=== PATIENT | female | born 1950 | race African-American/Black ===

== ENCOUNTER 2017-04-27 02:05 | Inpatient (IN) ==
[2017-04-27] MEDS ORDERED: ONDANSETRON 4 MG/2 ML VIAL IV STA (04:56)
[2017-04-27] MEDS ORDERED: NITROGLYCERIN 2% OINT 1 INCH/GM PACK TOP STA (04:56)
[2017-04-27] MEDS ORDERED: MORPHINE 2 MG/1 ML SYRINGE IV STA (04:56)
[2017-04-27] MEDS ORDERED: FUROSEMIDE 40 MG/4 ML VIAL IV STA (04:56)
[2017-04-27] MEDS ORDERED: ALUM/MAG/SIMETH/LIDO VISC 1:1 30 ML BOTTLE PO STA (04:56)
[2017-04-27] MEDS ORDERED: ASPIRIN 325 MG TABLET PO STA (04:56)
[2017-04-27] MEDS ORDERED: methylPREDNISolone SOD SUC 125 MG/2 ML VIAL IV STA (04:57)
[2017-04-27] MEDS ORDERED: ALBUTEROL/IPRATROPIUM 3 ML NEB RESP TX STA (04:57)
[2017-04-27 05:04] LABS: Basophils % 0.2 % (0.0-0.8); Eosinophils # 0.2 10*3/uL (0.0-0.87); Eosinophils % 3.5 % (0.00-10.9); Hematocrit 24.2 VOL% (35.7-47.0); Hemoglobin 6.9 GM/DL (12.0-16.0); Immature Granulocytes % 0.4 %; Immature Granulocytes Absolute 0.02 #; Lymphocytes # 0.9 10*3/uL (1.4-4.0); Lymphocytes % 20.5 % (21.3-54.2); Mean Corpuscular HGB Conc 28.5 GM/DL (32-36); Mean Corpuscular Hemoglobin 24 PG (27-34); Mean Corpuscular Volume 84.6 FL (87-102); Mean Platelet Volume 12.3 FL (9.6-12.0); Monocytes # 0.6 10*3/uL (0.11-0.8); Monocytes % 12.4 % (1.7-12.7); Neutrophils # 2.9 10*3/uL (1.4-7.4); Platelet Count 190 T/CUMM (130-400); Red Blood Count 2.86 MC/CUMM (3.8-5.5); Red Cell Distribution Width 17.5 % (9.3-17.3); White Blood Count 4.5 T/CUMM (4-12)
[2017-04-27] MEDS ORDERED: MORPHINE 2 MG/1 ML SYRINGE ONE (05:04)
[2017-04-27] MEDS ORDERED: NITROGLYCERIN 2% OINT 1 INCH/GM PACK TOP ONE (05:04)
[2017-04-27] MEDS ORDERED: FUROSEMIDE 40 MG/4 ML VIAL ONE (05:04)
[2017-04-27] MEDS ORDERED: ONDANSETRON 4 MG/2 ML VIAL ONE (05:04)
[2017-04-27] MEDS ORDERED: ALUM/MAG/SIMETH/LIDO VISC 1:1 30 ML BOTTLE PO ONE (05:05)
[2017-04-27] MEDS ORDERED: ASPIRIN 325 MG TABLET ONE (05:05)
[2017-04-27] MEDS ORDERED: methylPREDNISolone SOD SUC 125 MG/2 ML VIAL ONE (05:05)
[2017-04-27] MEDS ORDERED: FUROSEMIDE 20 MG/2 ML VIAL ONE (05:05)
[2017-04-27 05:10] LABS: PT Patient Result 10.9 SECS
[2017-04-27 05:14] LABS: Apearance,Urine Slightly Hazy (Clear); Bacteria,Urine Occasional /HPF (Few); Bilirubin,Urine Negative (Negative); Blood, Urine Moderate mg/dL (Negative); Glucose,Urine (UA) Negative (Negative); Hyaline Casts,Urine 1 /LPF (0-3); Ketones,Urine Negative (Negative); Mucus,Urine Occasional /LPF (Occasional); Nitrite,Urine Positive (Negative); Protein,Urine Negative; RBC,Urine 4 /HPF (0-4); Squamous Epithelial Cell,Urine Occasional /HPF (0-10); Urine Color Amber (Yellow); Urine Specific Gravity 1.004 (1.001-1.035); WBC,Urine 15 /HPF (0-6)
[2017-04-27 05:18] LABS: Albumin 2.6 G/DL (3.4-5.0); Bilirubin,Total 0.4 MG/DL (0.2-1.0); Calcium 8.4 MG/DL (8.5-10.1); Magnesium 2.2 MG/DL (1.8-2.4); Osmolality,Calculated 276.5 MOS/KG (273-304); Potassium 3.8 MMOL/L (3.5-5.1); Total Protein 6.8 G/DL (6.4-8.3)
--- NOTE | 2017-04-27 05:21 | Emergency Department Note ---
Marcin Rivera Brittany, am scribing for, and in the presence of, Nicholas Medrano MD 05:15. Mitchell Rivera Charles R, MD, personally performed the services described in this documentation, ascribed by Sailaja Burch in my presence, and it is both accurate and complete 521 . Arrival - Arrival Chief Complaint: Chest Pain ED Nursing Triage Note: pt brought in via ems with c/o "tightness to chest/ upper abd" pt states that she "feels full when she tries to eat" pt also reports a loss of appetite and having shortness of breath since. o2 sat 92% on RA Mode of Arrival: Stretcher Limitations: No Limitations Source: Patient, RN Notes Reviewed Time Seen by Provider: 04/27/17 02:22 - History of Present Illness HPI Narrative: Patient is a 66 y/o black female presenting to the ED via EMS with c/o chest and epigastric tightness that began tonight. Patient reports having some feeling of fullness when trying to eat. She has since had a loss of appetite and shortness of breath. Patient notably has an oxygen saturation of 92% on RA. Reports history of Cholecystectomy and Diabetes Mellitus. Patient states that she has had some knee pain as well. Patient does not ambulate secondary to being bedridden. She has not had any N/V with this. Patient is routinely followed at [facility]. Patient has no further complaints. Allergies/Adverse Reactions: Allergies Allergy/AdvReac Type Severity Reaction Status Date / Time Penicillins Allergy RASH Verified 04/27/17 04:38 Review of System - Review of System 12 point system: reviewed and no additional remarkable complaints except as stated - Review of System Respiratory: Present: respiratory distress Cardiovascular: Present: chest pain Gastrointestinal: Present: abdominal pain, other (loss of appetite). Absent: nausea, vomiting Musculoskeletal: Present: leg pain (bilateral knee) Medical,Surgical,& Family Hx - Medical History Cardio: History of: CHF, Hypertension Endocrine: History of: Diabetes Mellitus (NIDDM) Respiratory: History of: COPD - Social History Smoking Status: Never smoker Frequency of Alcohol Use: None Type of Drug Use: None Exam Vital Signs: Vital Signs Temperature 97.1 F L 04/27/17 02:05 Pulse Rate 67 04/27/17 02:05 Respiratory Rate 14 04/27/17 02:05 Blood Pressure 144/78 04/27/17 02:05 O2 Sat by Pulse Oximetry 92 L 04/27/17 02:05 - General General appearance: alert, in no apparent distress, obese (morbidly) - Head Head exam: Present: atraumatic, normocephalic - Eye Eye exam: Present: PERRL, EOMI - ENT ENT exam: Present: normal exam, normal oropharynx - Neck Neck exam: Present: normal inspection, full ROM, trachea midline - Chest Chest inspection: Present: normal inspection, symmetric chest wall rise - Respiratory Respiratory exam: Present: rales, respiratory distress (mild), wheezes. Absent : normal lung sounds bilaterally - Cardiovascular Cardiovascular exam: Present: regular rate, normal rhythm, normal heart sounds - Abdominal Exam Abdominal exam: Present: soft, distention, tenderness (epigastric), normal bowel sounds - Rectal Exam Rectal exam: Present: heme (-) stool - Extremities Exam Extremities exam: Present: pedal edema (+3 edema to BLE) - Back Exam Back exam: Present: normal inspection - Neurological Exam Neurological exam: Present: alert, oriented X3, CN II-XII intact. Absent: motor sensory deficit - Psychiatric Psychiatric exam: Present: normal affect, normal mood - Skin Skin exam: Present: warm, dry, intact, normal color Course - Consultations Consultation #1: Hospitalist will admit patient Time: 05:34 Results - Labs CBC & BMP: 04/27/17 02:41 04/27/17 02:41 Lab Results: I have reviewed the patients labs Labs: Laboratory Tests 04/27/17 04/27/17 04/27/17 02:41 02:41 02:41 WBC 4.5 RBC 2.86 L Hgb 6.9 L Hct 24.2 L MCV 84.6 L MCH 24 L MCHC 28.5 L RDW 17.5 H Plt Count 190 MPV 12.3 H Lymph % (Auto) 20.5 L Lymph # (Auto) 0.9 L INR 1.0 PT Patient/Control Mix 10.9 Sodium 132 L Potassium 3.8 Chloride 93 L Carbon Dioxide 34 H BUN 42 H Creatinine 3.70 H Glucose 127 H Calcium 8.4 L Troponin I Albumin 2.6 L Globulin 4.2 H Albumin/Globulin Ratio 0.6 L 04/27/17 02:41 WBC RBC Hgb Hct MCV MCH MCHC RDW Plt Count MPV Lymph % (Auto) Lymph # (Auto) INR PT Patient/Control Mix Sodium Potassium Chloride Carbon Dioxide BUN Creatinine Glucose Calcium Troponin I 0.049 H Albumin Globulin Albumin/Globulin Ratio Critical Care Time Critical Care Time: Yes Total Critical Care Time: 60 Disposition Clinical Impression: Chest pain, Morbid obesity, Congestive heart failure, Anemia, Bedridden, Debility, unspecified, Lower extremity edema, Renal failure, UTI (urinary tract infection), COPD (chronic obstructive pulmonary disease) Case discussed with: patient Disposition: Still a Patient Condition: Guarded Time of Disposition: 05:41
[2017-04-27] MEDS ORDERED: LEVOFLOXACIN INJ 250 MG in PREMIX 1 EACH IV STA (05:25)
[2017-04-27] MEDS ORDERED: ACETAMINOPHEN 325 MG TABLET PO PRN (05:40)
[2017-04-27] MEDS ORDERED: ONDANSETRON 4 MG/2 ML VIAL IV PRN (05:40)
[2017-04-27] MEDS ORDERED: LEVOFLOXACIN INJ 150 ML IV ONE (06:09)
[2017-04-27 06:16] LABS: Magnesium 2.3 MG/DL (1.8-2.4); Risk Ratio 4.03; Thyroid Stimulating Hormone 3.01 uIU/ml (0.358-3.74); VLDL CHOLESTEROL 24.8 MG/DL
[2017-04-27] MEDS ORDERED: GLUCAGON 1 MG VIAL IM PRN (06:18)
[2017-04-27] MEDS ORDERED: DEXTROSE 50% 25 GM/50 ML SYRINGE IV PRN (06:18)
--- NOTE | 2017-04-27 06:33 | Hospitalist History & Physical ---
Assessment and Plan - Time spent with patient Time spent with patient: Greater than 30 minutes (1) Chest pain Status: Acute Assessment and plan: Admit to hospitalist services. Monitored bed. Cardiology consult. Manage BP and fluid overload. Serial troponins. Current Visit: Yes (2) Congestive heart failure Status: Acute Assessment and plan: BNP 314. Cardiology consult. Obtain Echo. Lasix 80 mg IV TID. Manage BP. Strict I/Os Daily weight. Current Visit: Yes (3) UTI (urinary tract infection) Status: Acute Assessment and plan: Urine culture performed in ED, follow. Levaquin started in ED. Continue with 250 mg IV Q24. Current Visit: Yes (4) Hypertension Status: Acute Assessment and plan: Continue home medications. Lasix 80 mg IV TID. Monitor. Current Visit: Yes (5) Diabetes Status: Acute Assessment and plan: Continue home medications. Diabetic diet. Accuchecks and SSI ACHS. Current Visit: Yes (6) Anemia Status: Acute Assessment and plan: Hemeoccult stool negative. Repeat CBC in am. Current Visit: Yes (7) Renal failure Status: Acute Assessment and plan: Nephrology consult. Renally dosed antibiotic for UTI. Recheck CMP in am. Current Visit: Yes (8) DVT prophylaxis Status: Acute Assessment and plan: Lovenox 30 mg SQ daily. Current Visit: Yes History of Present Illness Chief complaint: Chest pain; SOB History of present illness: Ms. Miranda is a 66 year old female with a past medical history significant for HTN, IDDM, CHF, and morbid obesity who presents to the ED today with complaints of chest pain and shortness of breath x 4-5 days. Chest pain is located on the left side and is described as intermittent and a feeling of heaviness. She has associated epigastric discomfort with nausea and early satiety. She further complains of bilateral leg edema and pain. ED work up was significant for hemoglobin 2.86, hematocrit 24.2, Na 132, Creatinine 3.7, Troponin 0.049 and BNP 314. Her UA showed a nitrite positive UTI. Currently, she reports that her breathing is better and she does not have chest pain at pain. Her only discomfort at this time is her legs. Hospitalist services were consulted, and the patient will be admitted to a monitored bed for further evaluation and treatment. Her medications were reviewed and reconciled. This patient is a full code. Allergies Allergy/AdvReac Type Severity Reaction Status Date / Time Penicillins Allergy RASH Verified 04/27/17 04:38 Medical,Surgical,& Family Hx - Medical History Cardio: History of: CHF, Hypertension Endocrine: History of: Diabetes Mellitus (IDDM) Respiratory: History of: COPD Other: History of: Miscellaneous Medical Problems (Morbid obesity) - Surgical History Abdominal Surgeries: Surgical HX of: Cholecystectomy Reproductive Surgeries: Surgical HX of;: Tubal Ligation - Family History Family History: Reports;: Family Diabetes, Family Heart Disease - Social History Smoking Status: Former smoker Have you smoked in the last 12 months: No Frequency of Alcohol Use: None Type of Drug Use: None Marital Status: Lives With:: Children (Daughther and grandchildren) Functional capacity: bed bound 12 point system: reviewed and no additional remarkable complaints except as stated - Constitutional Constitutional: Present: weakness. Absent: fever(s), malaise - EENT Eyes: Absent: blurry vision, diplopia, loss of vision Ears: Absent: decreased hearing, ear discharge, ear pain Nose, mouth and throat: Absent: headache(s), nasal congestion, sore throat - Cardiovascular Cardiovascular: Present: chest pain at rest, dyspnea, edema, orthopnea. Absent : palpitations - Respiratory Respiratory: Present: dyspnea. Absent: cough, wheezing - Gastrointestinal Gastrointestinal: Present: early satiety, nausea. Absent: diarrhea, vomiting - Genitourinary Genitourinary: Absent: dysuria, flank pain - Musculoskeletal Musculoskeletal: Absent: arthralgias, joint swelling, muscle weakness, myalgias - Neurological Neurological: Absent: dizziness, numbness, paresthesias, syncope - Psychiatric Psychiatric: Absent: anxiety, depression - Endocrine Endocrine: Absent: cold intolerance, polydipsia, polyphagia, polyuria - Hematologic/Lymphatic Hematologic/Lymphatic: Absent: easy bleeding, easy bruising Exam - Constitutional Vitals: Period Temp Pulse Resp BP Sys/Elkins Pulse Ox Last 24 Hr 97.1 F-97.1 F 62-67 14-20 144-144/78-78 92-100 Exam: Constitutional System: Afebrile. Awake, alert and oriented x 3. No distress. No tremulousness. Head: Normocephalic, atraumatic. Ears, Nose and Throat System: No pain or tenderness. No epistaxis or discharge Eyes System: Pupils equal, round, and reactive. Extraocular muscles intact. Neck: Supple, without adenopathy, No jugular venous distention. No thyromegaly, neck mass, or prior surgery apparent. Respiratory System: Chest clear to auscultation. Cardiovascular System: Heart with regular rate and rhythm. No murmur. GI System: Abdomen soft, nontender. Normo active bowel sounds present. System: Hematuria noted in catheter bag. Musculoskeletal System: limbs with 4+ pedal edema. Full distal pulses. Normal capillary refill. Neurological System: No discernable sensory deficit. No aphasia Psychiatric System: Conversation is rational Results - Labs CBC & BMP: 04/27/17 02:41 04/27/17 02:41 Lab Results: I have reviewed the past 24 hour labs - Diagnostic Findings Procedure: Chest x-ray: pending (Report pending. )
[2017-04-27 06:47] LABS: Anisocytosis 1+; Hypochromasia 1+; Ovalocytes Few; Platelet Estimate Normal
--- NOTE | 2017-04-27 07:10 | EKG Report ---
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
--- NOTE | 2017-04-27 08:28 | EKG Report ---
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
[2017-04-27] MEDS ORDERED: DIGOXIN 0.125 MG TABLET PO SCH (09:00)
--- NOTE | 2017-04-27 09:20 | XRay Report ---
Single view the chest. Indication: Chest pain. No previous. The heart is enlarged. There is calcific plaque present within the aortic knob. The lung xiong are free of infiltrate. No pneumothorax or pleural effusion. The pulmonary vasculature is prominent. Impression: Cardiomegaly and venous congestion. PROCEDURE INTERPRETED AT [facility] DEPARTMENT OF RADIOLOGY Final Report Signed by: Dr. Joanne Isaacs
[2017-04-27] MEDS: LEVOFLOXACIN INJ 250 MG in PREMIX 1 EACH IV SCH (09:26)
[2017-04-27] MEDS: POTASSIUM CHLORIDE 10 MEQ TABLET PO SCH ×2 (09:26→20:39)
[2017-04-27] MEDS: CARVEDILOL 12.5 MG TABLET PO SCH ×2 (09:26→20:39)
[2017-04-27] MEDS: PIOGLITAZONE 45 MG TABLET PO SCH (09:27)
[2017-04-27] MEDS: ENOXAPARIN 30 MG/0.3 ML SYRINGE SUBCUT SCH (09:27)
[2017-04-27] MEDS: FUROSEMIDE 40 MG/4 ML VIAL IV SCH ×3 (09:28→20:40)
[2017-04-27] MEDS: INSULIN ASPART PROTAMINE/ASPART 70/30 100 UNIT/ML SUBCUT SCH ×2 (09:30→18:18)
[2017-04-27] MEDS: INSULIN LISPRO 100 UNIT/ML SUBCUT SCH ×4 (09:31→20:57)
--- NOTE | 2017-04-27 10:58 | EKG Report ---
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
--- NOTE | 2017-04-27 11:08 | Hospitalist Progress Note ---
Assessment and Plan (1) Chest pain Status: Acute Assessment and plan: Her chest pain has resolved. Her troponins have been elevated to 0.049 and 0.052. This may well be due to her congestive heart failure and renal failure. Cardiology has been consulted Current Visit: Yes (2) Morbid obesity Status: Acute Current Visit: Yes (3) Congestive heart failure Status: Acute Assessment and plan: She experiencing acute on chronic congestive heart failure, type unknown. An echocardiogram has been ordered. Cardiology has been consulted. She is presently being treated with intravenous furosemide. Current Visit: Yes (4) Debility, unspecified Status: Acute Current Visit: Yes (5) Renal failure Status: Acute Assessment and plan: Her BUN and creatinine are 42 and 3.7 respectively with a calculated GFR of 21. It is unclear if this is chronic renal failure, acute renal failure, or acute on chronic renal failure. Nephrology has been consulted. Current Visit: Yes Qualifiers: Renal failure chronicity: unspecified chronicity Qualified Code(s): N19 - Unspecified kidney failure (6) UTI (urinary tract infection) Status: Acute Assessment and plan: She is being treated with intravenous levofloxacin 250 mg daily. Cultures are pending. Current Visit: Yes Qualifiers: Urinary tract infection type: site unspecified Hematuria presence: without hematuria Qualified Code(s): N39.0 - Urinary tract infection, site not specified (7) Hypertension Status: Acute Assessment and plan: Her blood pressure today is 145/83. She is presently being treated with carvedilol. Current Visit: Yes (8) Diabetes Status: Acute Assessment and plan: She has a previous history of insulin-dependent diabetes mellitus. Her blood glucose this morning is 127. She is being treated with continuation of her previous medications and sliding scale insulin coverage. Current Visit: Yes Qualifiers: Diabetes mellitus type: type 1 Diabetes mellitus complication detail: with chronic kidney disease Hospitalist: Subjective Interval history: Ms. Miranda is a morbidly obese female admitted to the hospital yesterday with a urinary tract infection, chest pain, and acute on chronic congestive heart failure and renal failure. She has been treated since admission with intravenous levofloxacin and furosemide. Cardiology has been consulted. Exam - Constitutional Vitals: Period Temp Pulse Resp BP Sys/Elkins Pulse Ox Last 24 Hr 97.1 F-98.1 F 62-72 14-20 131-145/63-83 92-100 General appearance: no acute distress, morbidly obese - Head Head exam: Present: normal inspection - Neck Neck exam: Present: normal inspection - Respiratory Respiratory exam: Present: clear to auscultation bilaterally - Cardiovascular Cardiovascular exam: Present: regular rate and rhythm - GI/Abdominal GI/Abdominal exam: Present: normal bowel sounds, soft, other (Nontender with no palpable masses or hepatosplenomegaly.) - Extremities Exam Extremities exam: Present: edema - Back Exam Back exam: Present: other (Small stage I sacral decubitus.) - Neurological Exam Neurological exam: Present: alert, oriented X3 - Skin Skin exam: Present: normal color, warm, intact Results - Labs CBC & BMP: 04/27/17 02:41 04/27/17 02:41
--- NOTE | 2017-04-27 11:51 | Nephrology Consult Note ---
History of Present Illness Chief complaint: ckd History of present illness: Ms. Miranda is a 66 year old female whom we are asked to see with a creatinine of 3-1/2. She presented to the emergency room with swelling and her doctor is Dr. Ana Lilia Hull in [place]. She is a long-standing diabetic who takes insulin. She complains of a full feeling in her abdomen that is bothersome to her along with the edema. Para urinalysis demonstrated no proteinuria. She is anemic with a hematocrit of approximately 25.. On exam she is [place] obese and her neck without jugular venous distention heart without rub or gallop lungs are clear the abdomen obese and nontender extremities with 3-4+ peripheral edema Chest x-ray demonstrates no gross volume overload Impression chronic renal failure and anemia likely secondary to that, grand obesity Suggestion I agree with the diuresis. Will check iron iron-binding capacity and a digoxin level will need to rule out renal obstruction and will try to do that with an ultrasound but her size may prohibit it Home Medications Medication Instructions Recorded Confirmed Type Amitriptyline HCl 100 mg PO BEDTIME 04/27/17 04/27/17 History Carvedilol 12.5 mg PO BID W/MEALS 04/27/17 04/27/17 History Digoxin 125 mcg PO DAILY 04/27/17 04/27/17 History Furosemide 80 mg PO TID 04/27/17 04/27/17 History Hydrocodone/Acetaminophen [[place] 1 each PO Q4H PRN 04/27/17 04/27/17 History 10-325 Tablet] Insulin Aspart Prot/Asp 70/30 30 unit SUBCUT QPM 04/27/17 04/27/17 History [NovoLOG Mix 70/30] Insulin Aspart Prot/Asp 70/30 40 unit SUBCUT QAM 04/27/17 04/27/17 History [NovoLOG Mix 70/30] Loratadine Tab [Claritin Tab] 10 mg PO DAILY 04/27/17 04/27/17 History Lubiprostone [Amitiza] 24 - 48 mcg PO DAILY 04/27/17 04/27/17 History Pioglitazone HCl 45 mg PO DAILY 04/27/17 04/27/17 History Potassium Chloride 10 meq PO BID 04/27/17 04/27/17 History Saccharomyces Boulardii [Probiotic] 250 mg PO BID 04/27/17 04/27/17 History acetaZOLAMIDE [Acetazolamide] 250 mg PO BID 04/27/17 04/27/17 History Allergies Allergy/AdvReac Type Severity Reaction Status Date / Time Penicillins Allergy RASH Verified 04/27/17 04:38 Medical,Surgical,& Family Hx - Medical History Cardio: History of: CHF, Hypertension Endocrine: History of: Diabetes Mellitus (IDDM), Diabetes Mellitus (NIDDM) Respiratory: History of: COPD Other: History of: Miscellaneous Medical Problems (Morbid obesity) - Surgical History Abdominal Surgeries: Surgical HX of: Cholecystectomy Reproductive Surgeries: Surgical HX of;: Gynecologic Surgery, Tubal Ligation - Family History Family History: Reports;: Family Diabetes, Family Heart Disease - Social History Smoking Status: Former smoker Frequency of Alcohol Use: None Type of Drug Use: None Review of Systems 12 point system: reviewed and no additional remarkable complaints except as stated Exam - Vital Signs Vital signs: Period Temp Pulse Resp BP Sys/Elkins Pulse Ox Last 24 Hr 97.1 F-98.1 F 62-72 14-20 131-145/63-83 92-100 - General Appearance General appearance: obese EENT: ATNC Neck: no JVD, no thyromegaly, no carotid bruit, supple Respiratory: no kyphosis, no scoliosis Cardiology: no murmurs, no rub, no gallops, no edema, regular rate, regular rhythm, normal S1, normal S2 Gastrointestinal: normoactive bowel sounds Integumentary: no rash, warm and dry Neurologic: no focal deficit, no asterixis, alert and oriented x3, reflexes 2+ and symmetric, gait normal, strength 5/5 Musculoskeletal: no deformities, no erythema, no cyanosis, no clubbing Psychiatric: mood/affect appropriate, cooperative Results - Labs CBC & BMP: 04/27/17 02:41 04/27/17 02:41 Specialty Discharge - Follow Up or Referrals - Speciality Discharge Instructions Nephrology Instructions: Renal ultrasound. Diuresis.
--- NOTE | 2017-04-27 13:28 | ECHO Report ---
Kavitha Miranda Exam Date: 04/27/2017 10:23 Referring Physician: Technologist: cee Jose ARDMS, RVT Age: 66 Ht (in): 65 Wt (lb): 400 Gender: F Exam Location: [facility] Echo Indications: Chest pain, unspecified, Essential (primary) hypertension, CHF, Renal failure, UTI, DM, Anemia BP: 145 / 83 HR: 70 Rhythm: Sinus Technical Quality: IMPRESSIONS Mildly dilated left ventricle, with mild concentric hypertrophy. The inferior wall is hypokinetic, and the remaining segments have normal systolic thickening. Estimated left ventricular ejection fraction 50%. Grade 3 diastolic dysfunction. Mildly dilated right ventricle, with normal systolic function. Mild biatrial enlargement. Mild mitral annular calcification, with mild mitral regurgitation. Severe pulmonary hypertension, with moderate tricuspid regurgitation. MEASUREMENTS (Male / Female) Normal Values 2D ECHO LV Diastolic Diameter PLAX 6.5 cm 4.2 - 5.9 / 3.9 - 5.3 cm LV Systolic Diameter PLAX 4.2 cm LV Fractional Shortening PLAX 35.9 % IVS Diastolic Thickness 1.1 cm 0.6 - 1.0 / 0.6 - 0.9 cm LVPW Diastolic Thickness 1.3 cm 0.6 - 1.0 / 0.6 - 0.9 cm RV Internal Dim ED PLAX 3.3 cm Aortic Root Diameter 2.9 cm LA Systolic Diameter LX 4.3 cm 3.0 - 4.0 / 2.7 - 3.8 cm DOPPLER TR Peak Velocity 426.0 cm/s TR Peak Gradient 72.6 mmHg FINDINGS Left Ventricle Mildly dilated left ventricle, with mild concentric hypertrophy. The inferior wall is hypokinetic, and the remaining segments have normal systolic thickening. Estimated left ventricular ejection fraction 50%. Grade 3 diastolic dysfunction. Right Ventricle Mildly dilated right ventricle, with normal systolic function. Right Atrium The right atrium is mildly enlarged. Left Atrium The left atrium is mildly enlarged. Mitral Valve Morphologically normal mitral valve. Mild mitral annular calcification. Mild mitral valve regurgitation. Aortic Valve Morphologically normal aortic valve without significant sclerosis or stenosis. There is no aortic regurgitation. Tricuspid Valve Tricuspid valve not well visualized. Moderate tricuspid valve regurgitation. Tricuspid regurgitation velocities suggest a PAP of 73 mmHg plus RA pressure. Pulmonic Valve Morphologically normal pulmonic valve without significant stenosis. There is no pulmonic regurgitation. Pericardium Normal pericardium without effusion. Aorta Normal ascending aorta dimension. Shaka Howell (Electronically Signed) Final Date: 27 April 2017 13:27
--- NOTE | 2017-04-27 13:42 | Cardiology Consult Note ---
Assessment and Plan (1) Congestive heart failure Status: Acute Assessment and plan: 66-year-old black female, morbid obesity, bedridden, IVAN on CPAP, type 2 diabetes mellitus hypertension. Admitted with anasarca, volume overload, shortness of breath, chest pain. IVCD/ LBBB, with unknown chronicity, preserved ejection fraction, with a WMA suspicious for ICM, severe pulmonary hypertension, a LAURA vs. CKD. Doubt ACS. -She will need workup for cardiomyopathy and severe pulmonary hypertension. Once volume overload improves, suggest pharmacologic stress test and RHC. If renal function improves, we may do LHC instead of stress test -Continue IV diuresis, per renal recommendation -Check d-dimer. If elevated, DVT study and VQ scan -Indication for digoxin unclear. She is in sinus and ejection fraction is preserved. Severe renal dywsfunction. Discontinue. If he does have cor pulmonale, sometimes, this may be indicated -Resume CPAP for IVAN. She had no details on this, I suggest sleep/pulmonary consult, she may have OHS on top. Check ABG -Start aspirin, continue beta-cody. -Lipids normal. Multiple CV risk factors, I suggest to start Crestor 10 mg nightly Current Visit: Yes History of Present Illness - Data of Consult Patient: new to practice Consult date: 04/27/17 - Consult Narrative Reason for consult: edema, cp History of present illness: Ms. Miranda is a 66 year old black female, who was not previously seen by cardiology. She was admitted with gradually worsening edema, recent onset rest chest pain. She is a bit lethargic and is a very poor historian, most of the history was obtained from the chart. History of morbid obesity, bedridden, IVAN, for which she admits she uses CPAP, type 2 diabetes mellitus, htn. She came on digoxin, for which to indication is unclear. On admission, she was found to be in volume overload, anasarca, severe LAURA versus CKD, anemia of unknown chronicity, mild hyponatremia. TFTs normal. Troponin was borderline elevated, flat EKG sinus rhythm, IVCD/atypical left bundle branch block. Echo showed ejection fraction 50%, with inferior wall motion abnormality, severe pulmonary hypertension. Mild MR, mildly dilated RV. She is still quite somnolent and is unable to provide more details. Appears to be comfortable. CC: Rubén Mims - Home Medications and Allergies Home Medications: Home Medications Medication Instructions Recorded Confirmed Type Amitriptyline HCl 100 mg PO BEDTIME 04/27/17 04/27/17 History Carvedilol 12.5 mg PO BID W/MEALS 04/27/17 04/27/17 History Digoxin 125 mcg PO DAILY 04/27/17 04/27/17 History Furosemide 80 mg PO TID 04/27/17 04/27/17 History Hydrocodone/Acetaminophen [[place] 1 each PO Q4H PRN 04/27/17 04/27/17 History 10-325 Tablet] Insulin Aspart Prot/Asp 70/30 30 unit SUBCUT QPM 04/27/17 04/27/17 History [NovoLOG Mix 70/30] Insulin Aspart Prot/Asp 70/30 40 unit SUBCUT QAM 04/27/17 04/27/17 History [NovoLOG Mix 70/30] Loratadine Tab [Claritin Tab] 10 mg PO DAILY 04/27/17 04/27/17 History Lubiprostone [Amitiza] 24 - 48 mcg PO DAILY 04/27/17 04/27/17 History Pioglitazone HCl 45 mg PO DAILY 04/27/17 04/27/17 History Potassium Chloride 10 meq PO BID 04/27/17 04/27/17 History Saccharomyces Boulardii [Probiotic] 250 mg PO BID 04/27/17 04/27/17 History acetaZOLAMIDE [Acetazolamide] 250 mg PO BID 04/27/17 04/27/17 History Allergies/Adverse Reactions: Allergies Allergy/AdvReac Type Severity Reaction Status Date / Time Penicillins Allergy RASH Verified 04/27/17 04:38 12 point system: reviewed and no additional remarkable complaints except as stated Medical,Surgical,& Family Hx - Medical History Cardio: History of: CHF, Hypertension Endocrine: History of: Diabetes Mellitus (IDDM), Diabetes Mellitus (NIDDM) Respiratory: History of: COPD Other: History of: Miscellaneous Medical Problems (Morbid obesity) - Surgical History Abdominal Surgeries: Surgical HX of: Cholecystectomy Reproductive Surgeries: Surgical HX of;: Gynecologic Surgery, Tubal Ligation - Family History Family History: Reports;: Family Diabetes, Family Heart Disease - Social History Smoking Status: Former smoker Frequency of Alcohol Use: None Type of Drug Use: None Physical Examination Vital Signs Temp Pulse Resp BP Pulse Ox 97.1 F L 67 14 144/78 92 L 04/27/17 02:05 04/27/17 02:05 04/27/17 02:05 04/27/17 02:05 04/27/17 02:05 General: Present: Appears Well, No Apparent Distress, Other (Somnolent) HEENT: Present: Normocephaly, Mucus Membranes Moist Neck: Present: No Bruit, No Thyromegaly, Other (Thick neck, unable to assess JVD ) Cardiac: Present: Regular Rate, Regular Rhythm, Systolic Murmur. Absent: Laterally Displaced Lungs: Present: Decreased Breath Sounds, No Wheezes, No Rhonchi Neuro: Present: Grossly Intact Abdomen: Present: Soft, Active Bowel Sounds Skin: Present: Clear Musculoskeletal: Present: No Pain Gait: Present: Other (Bedridden) Extremities: Present: No Clubbing, No Cyanosis, +3 Edema Result/EKG - Labs CBC & BMP: 04/27/17 02:41 04/27/17 02:41 Lab Results: I have reviewed the past 24 hour labs Labs: Laboratory Results - last 24 hr 04/27/17 04/27/17 04/27/17 02:41 02:41 02:41 WBC RBC Hgb Hct MCV MCH MCHC RDW Plt Count MPV Neut % (Auto) Lymph % (Auto) [place] % (Auto) Eos % (Auto) Baso % (Auto) Neut # (Auto) Lymph # (Auto) [place] # (Auto) Eos # (Auto) Baso # (Auto) Immature Gran % Nucleated RBC % Immature Gran # Nucleated RBCs # Platelet Estimate Immature Plt Fraction Hypochromasia Anisocytosis Ovalocytes INR 1.0 PT Patient/Control Mix 10.9 Sodium 132 L Potassium 3.8 Chloride 93 L Carbon Dioxide 34 H Anion Gap 8.8 BUN 42 H Creatinine 3.70 H GFR Calculation 21 BUN/Creatinine Ratio 11.00 Glucose 127 H POC Glucose Hemoglobin A1c Calculated Osmolality 276.5 Calcium 8.4 L Magnesium 2.2 Total Bilirubin 0.40 AST 14 ALT 17 Alkaline Phosphatase 51 Troponin I B-Natriuretic Peptide Total Protein 6.8 Albumin 2.6 L Globulin 4.2 H Albumin/Globulin Ratio 0.6 L Triglycerides Cholesterol LDL Cholesterol VLDL Cholesterol HDL Cholesterol Heart Disease Risk Ratio Lipase 146.0 Free T4 TSH 3rd Generation Urine Color Radha Urine Appearance Slightly hazy Urine pH 5.0 Ur Specific [place] 1.004 Urine Protein Negative Urine Glucose (UA) Negative Urine Ketones Negative Urine Blood Moderate Urine Nitrate Positive H Urine Bilirubin Negative Urine Urobilinogen 2.0 H Urine Leukocytes Moderate H Urine RBC 4 Urine WBC 15 Urine WBC Clumps Few Ur Squamous Epith Cells Occasional Urine Bacteria Occasional Hyaline Casts 1 Urine Mucus Occasional Urine Yeast (Budding) Occasional Ur Culture Indicated? Results to follow 04/27/17 04/27/17 04/27/17 02:41 02:41 02:41 WBC 4.5 RBC 2.86 L Hgb 6.9 L Hct 24.2 L MCV 84.6 L MCH 24 L MCHC 28.5 L RDW 17.5 H Plt Count 190 MPV 12.3 H Neut % (Auto) 63.0 Lymph % (Auto) 20.5 L [place] % (Auto) 12.4 Eos % (Auto) 3.5 Baso % (Auto) 0.2 Neut # (Auto) 2.9 Lymph # (Auto) 0.9 L [place] # (Auto) 0.6 Eos # (Auto) 0.2 Baso # (Auto) 0.0 Immature Gran % 0.4 Nucleated RBC % 0.0 Immature Gran # 0.02 Nucleated RBCs # 0.00 Platelet Estimate Normal Immature Plt Fraction 0.0 Hypochromasia 1+ Anisocytosis 1+ Ovalocytes Few INR PT Patient/Control Mix Sodium Potassium Chloride Carbon Dioxide Anion Gap BUN Creatinine GFR Calculation BUN/Creatinine Ratio Glucose POC Glucose Hemoglobin A1c Calculated Osmolality Calcium Magnesium Total Bilirubin AST ALT Alkaline Phosphatase Troponin I 0.049 H B-Natriuretic Peptide 314 H Total Protein Albumin Globulin Albumin/Globulin Ratio Triglycerides Cholesterol LDL Cholesterol VLDL Cholesterol HDL Cholesterol Heart Disease Risk Ratio Lipase Free T4 TSH 3rd Generation Urine Color Urine Appearance Urine pH Ur Specific [place] Urine Protein Urine Glucose (UA) Urine Ketones Urine Blood Urine Nitrate Urine Bilirubin Urine Urobilinogen Urine Leukocytes Urine RBC Urine WBC Urine WBC Clumps Ur Squamous Epith Cells Urine Bacteria Hyaline Casts Urine Mucus Urine Yeast (Budding) Ur Culture Indicated? 04/27/17 04/27/17 04/27/17 02:41 02:41 07:53 WBC RBC Hgb Hct MCV MCH MCHC RDW Plt Count MPV Neut % (Auto) Lymph % (Auto) [place] % (Auto) Eos % (Auto) Baso % (Auto) Neut # (Auto) Lymph # (Auto) [place] # (Auto) Eos # (Auto) Baso # (Auto) Immature Gran % Nucleated RBC % Immature Gran # Nucleated RBCs # Platelet Estimate Immature Plt Fraction Hypochromasia Anisocytosis Ovalocytes INR PT Patient/Control Mix Sodium Potassium Chloride Carbon Dioxide Anion Gap BUN Creatinine GFR Calculation BUN/Creatinine Ratio Glucose POC Glucose 180 H Hemoglobin A1c Calculated Osmolality Calcium Magnesium 2.3 Total Bilirubin AST ALT Alkaline Phosphatase Troponin I B-Natriuretic Peptide Total Protein Albumin Globulin Albumin/Globulin Ratio Triglycerides 124 Cholesterol 161 LDL Cholesterol 98.0 VLDL Cholesterol 24.8 HDL Cholesterol 40 Heart Disease Risk Ratio 4.03 Lipase Free T4 1.28 TSH 3rd Generation 3.010 Urine Color Urine Appearance Urine pH Ur Specific [place] Urine Protein Urine Glucose (UA) Urine Ketones Urine Blood Urine Nitrate Urine Bilirubin Urine Urobilinogen Urine Leukocytes Urine RBC Urine WBC Urine WBC Clumps Ur Squamous Epith Cells Urine Bacteria Hyaline Casts Urine Mucus Urine Yeast (Budding) Ur Culture Indicated? 04/27/17 04/27/17 04/27/17 08:17 08:17 11:08 WBC RBC Hgb Hct MCV MCH MCHC RDW Plt Count MPV Neut % (Auto) Lymph % (Auto) [place] % (Auto) Eos % (Auto) Baso % (Auto) Neut # (Auto) Lymph # (Auto) [place] # (Auto) Eos # (Auto) Baso # (Auto) Immature Gran % Nucleated RBC % Immature Gran # Nucleated RBCs # Platelet Estimate Immature Plt Fraction Hypochromasia Anisocytosis Ovalocytes INR PT Patient/Control Mix Sodium Potassium Chloride Carbon Dioxide Anion Gap BUN Creatinine GFR Calculation BUN/Creatinine Ratio Glucose POC Glucose Hemoglobin A1c 8.2 H Calculated Osmolality Calcium Magnesium Total Bilirubin AST ALT Alkaline Phosphatase Troponin I 0.052 H 0.046 H B-Natriuretic Peptide Total Protein Albumin Globulin Albumin/Globulin Ratio Triglycerides Cholesterol LDL Cholesterol VLDL Cholesterol HDL Cholesterol Heart Disease Risk Ratio Lipase Free T4 TSH 3rd Generation Urine Color Urine Appearance Urine pH Ur Specific [place] Urine Protein Urine Glucose (UA) Urine Ketones Urine Blood Urine Nitrate Urine Bilirubin Urine Urobilinogen Urine Leukocytes Urine RBC Urine WBC Urine WBC Clumps Ur Squamous Epith Cells Urine Bacteria Hyaline Casts Urine Mucus Urine Yeast (Budding) Ur Culture Indicated? 04/27/17 12:42 WBC RBC Hgb Hct MCV MCH MCHC RDW Plt Count MPV Neut % (Auto) Lymph % (Auto) [place] % (Auto) Eos % (Auto) Baso % (Auto) Neut # (Auto) Lymph # (Auto) [place] # (Auto) Eos # (Auto) Baso # (Auto) Immature Gran % Nucleated RBC % Immature Gran # Nucleated RBCs # Platelet Estimate Immature Plt Fraction Hypochromasia Anisocytosis Ovalocytes INR PT Patient/Control Mix Sodium Potassium Chloride Carbon Dioxide Anion Gap BUN Creatinine GFR Calculation BUN/Creatinine Ratio Glucose POC Glucose 191 H Hemoglobin A1c Calculated Osmolality Calcium Magnesium Total Bilirubin AST ALT Alkaline Phosphatase Troponin I B-Natriuretic Peptide Total Protein Albumin Globulin Albumin/Globulin Ratio Triglycerides Cholesterol LDL Cholesterol VLDL Cholesterol HDL Cholesterol Heart Disease Risk Ratio Lipase Free T4 TSH 3rd Generation Urine Color Urine Appearance Urine pH Ur Specific [place] Urine Protein Urine Glucose (UA) Urine Ketones Urine Blood Urine Nitrate Urine Bilirubin Urine Urobilinogen Urine Leukocytes Urine RBC Urine WBC Urine WBC Clumps Ur Squamous Epith Cells Urine Bacteria Hyaline Casts Urine Mucus Urine Yeast (Budding) Ur Culture Indicated? - EKG EKG results: interpreted by me
[2017-04-27 13:43] LABS: % Iron Saturation 13.9 % (18-50)
[2017-04-27 14:14] LABS: ABG Base Excess 5.5 MMOL/L (-2.5-2.5); ABG HCO3 32.7 MMOL/L (20-26); ABG Oxygen Saturation 99.6 % (95-100); ABG PCO2 67.1 MM HG (35-48); ABG PH 7.306 (7.35-7.45); ABG PO2 118.2 MM HG (80-95); ABG TCO2 34.8 MMOL/L (23-27)
[2017-04-27] MEDS: ASPIRIN EC 81 MG TABLET PO SCH (16:23)
[2017-04-27] MEDS: AMITRIPTYLINE 100 MG TABLET PO SCH (20:38)
[2017-04-27] MEDS: LACTOBACILLUS ACIDOPHILUS/BULGARICUS CAPLET PO SCH (20:39)
[2017-04-27] MEDS: ROSUVASTATIN 10 MG TABLET PO SCH (20:39)
[2017-04-28 06:18] LABS: Hematocrit 23.8 VOL% (35.7-47.0); Hemoglobin 6.9 GM/DL (12.0-16.0); Immature Granulocytes % 0.7 %; Immature Granulocytes Absolute 0.02 #; Lymphocytes # 0.5 10*3/uL (1.4-4.0); Lymphocytes % 16.8 % (21.3-54.2); Mean Corpuscular Hemoglobin 24 PG (27-34); Mean Corpuscular Volume 82.4 FL (87-102); Monocytes # 0.1 10*3/uL (0.11-0.8); Monocytes % 3.6 % (1.7-12.7); Neutrophils # 2.2 10*3/uL (1.4-7.4); Neutrophils % 78.9 % (38.7-73.9); Platelet Count 178 T/CUMM (130-400); Red Blood Count 2.89 MC/CUMM (3.8-5.5); Red Cell Distribution Width 17.6 % (9.3-17.3); White Blood Count 2.8 T/CUMM (4-12)
[2017-04-28 06:39] LABS: Albumin 2.4 G/DL (3.4-5.0); Bilirubin,Total 0.6 MG/DL (0.2-1.0); Calcium 8.3 MG/DL (8.5-10.1); Osmolality,Calculated 281.2 MOS/KG (273-304); Potassium 4.3 MMOL/L (3.5-5.1); Total Protein 6.5 G/DL (6.4-8.3)
--- NOTE | 2017-04-28 08:04 | Ultrasound Report ---
US renal Bilateral Indication: Ckd. Comparison: None. Technique: Multiple longitudinal and transverse real-time sonographic images of the kidneys are obtained. Findings: The right kidney measures 11.9 cm, and the left kidney measures 11.0 cm. There is no evidence of hydronephrosis. Exam limited secondary to patient body habitus. IMPRESSION: Limited exam without evidence of hydronephrosis. PROCEDURE INTERPRETED AT [facility] DEPARTMENT OF RADIOLOGY Final Report Signed by: Dr Clark Mayo
[2017-04-28] MEDS: LEVOFLOXACIN INJ 250 MG in PREMIX 1 EACH IV SCH (08:25)
[2017-04-28] MEDS: POTASSIUM CHLORIDE 10 MEQ TABLET PO SCH ×2 (09:40→21:45)
[2017-04-28] MEDS: PIOGLITAZONE 45 MG TABLET PO SCH (09:40)
[2017-04-28] MEDS: LACTOBACILLUS ACIDOPHILUS/BULGARICUS CAPLET PO SCH ×2 (09:41→21:44)
[2017-04-28] MEDS: ASPIRIN EC 81 MG TABLET PO SCH (09:41)
[2017-04-28] MEDS: CARVEDILOL 12.5 MG TABLET PO SCH ×2 (09:42→21:46)
[2017-04-28] MEDS: LORATADINE 10 MG TABLET PO SCH (09:43)
[2017-04-28] MEDS: INSULIN LISPRO 100 UNIT/ML SUBCUT SCH ×4 (09:48→21:45)
[2017-04-28] MEDS: ENOXAPARIN 30 MG/0.3 ML SYRINGE SUBCUT SCH (09:48)
[2017-04-28] MEDS: INSULIN ASPART PROTAMINE/ASPART 70/30 100 UNIT/ML SUBCUT SCH ×2 (09:49→21:44)
[2017-04-28] MEDS: FUROSEMIDE 40 MG/4 ML VIAL IV SCH ×3 (09:57→21:53)
[2017-04-28] MEDS ORDERED: ZINC OXIDE PASTE 113 GM TUBE TOP PRN (11:10)
--- NOTE | 2017-04-28 14:04 | Nephrology Progress Note ---
Nephrology - PN: Subj Interval history: Ms. Miranda is seen in follow-up of her azotemia. Her creatinine is improved today now down to 3.2. She is diuresing fairly well and will continue with the diuretics for now. She is essentially without complaints. We will continue to follow her renal function as we diurese her. Exam (PN)-Nephrology - Vital Signs Vital signs: Period Temp Pulse Resp BP Sys/Elkins Pulse Ox Last 24 Hr 97.5 F-98.4 F 56-63 16-20 100-140/56-89 94-98 - Lab 04/28/17 04:19 04/28/17 04:19 Most recent lab results ABG pH 7.306 (7.35-7.45) L 04/27/17 14:08 ABG pCO2 67.1 MM HG (35-48) H 04/27/17 14:08 ABG pO2 118.2 MM HG (80-95) H 04/27/17 14:08 ABG HCO3 32.7 MMOL/L (20-26) H 04/27/17 14:08 ABG O2 Saturation 99.6 % (95-100) 04/27/17 14:08 Calcium 8.3 MG/DL (8.5-10.1) L 04/28/17 04:19 Magnesium 2.3 MG/DL (1.8-2.4) 04/27/17 02:41
--- NOTE | 2017-04-28 16:13 | Hospitalist Progress Note ---
Assessment and Plan (1) Morbid obesity Status: Acute Current Visit: Yes (2) Congestive heart failure Status: Acute Assessment and plan: The patient is admitted hospital with cor pulmonale. She appears to have pulmonary hypertension due to obesity hypoventilation syndrome causing her to have anasarca. The patient is responding to supportive care including CPAP, IV diuresis, and control blood pressure. We will continue present care and recheck renal function in the morning. Current Visit: Yes Qualifiers: Congestive heart failure type: combined Congestive heart failure chronicity : acute on chronic Qualified Code(s): I50.43 - Acute on chronic combined systolic (congestive) and diastolic (congestive) heart failure (3) Debility, unspecified Status: Acute Current Visit: Yes (4) Lower extremity edema Status: Acute Current Visit: Yes (5) Renal failure Status: Acute Current Visit: Yes Qualifiers: Renal failure chronicity: unspecified chronicity Qualified Code(s): N19 - Unspecified kidney failure Hospitalist: Subjective Interval history: Mrs. Miranda is mostly somnolent. She arouses to verbal command and follows commands. The patient is cooperative with therapy. The patient has CPAP at the bedside. She appears to be pickwickian. Exam - Constitutional Vitals: Period Temp Pulse Resp BP Sys/[place] Pulse Ox Last 24 Hr 97.5 F-98.4 F 56-66 16-20 100-134/47-89 94-100 Exam: Constitutional System: Mild distress. No tremulousness. The patient falls to sleep easily. The patient is morbidly obese. Head: Normocephalic, atraumatic. Ears, Nose and Throat System: No evidence of Otitis or Mastoiditis. No epistaxis or discharge Eyes System: Pupils equal, round, and reactive. Extraocular muscles intact. Neck: Supple, without adenopathy, No jugular venous distention. No thyromegaly , neck mass, or prior surgery apparent. Respiratory System: Chest clear to auscultation. The patient has small lung volumes Cardiovascular System: Heart with regular rate and rhythm. No murmur. GI System: Abdomen soft, nontender. Normo active bowel sounds present. Musculoskeletal System: limbs with no pedal edema. Full distal pulses. Results - Labs CBC & BMP: 04/28/17 04:19 04/28/17 04:19 Lab Results: I have reviewed the past 24 hour labs
--- NOTE | 2017-04-28 17:11 | Cardiology Progress Note ---
<Sneha Flores E - Last Filed: 04/28/17 17:50> Assessment and Plan - Time spent with patient Time spent with patient: Less than 30 minutes (1) Congestive heart failure Status: Acute Assessment and plan: See plan of care listed below. Current Visit: Yes Qualifiers: Congestive heart failure type: combined Congestive heart failure chronicity : acute on chronic Qualified Code(s): I50.43 - Acute on chronic combined systolic (congestive) and diastolic (congestive) heart failure (2) Hypertension Status: Chronic Assessment and plan: See plan of care listed below. Current Visit: Yes (3) Type 2 diabetes mellitus Status: Chronic Assessment and plan: See plan of care listed below. Current Visit: Yes (4) Obstructive sleep apnea Status: Chronic Assessment and plan: See plan of care listed below. Current Visit: Yes (5) Morbid obesity Status: Chronic Assessment and plan: See plan of care listed below. Current Visit: Yes (6) Bedridden Status: Acute Assessment and plan: See plan of care listed below. Current Visit: Yes (7) Renal failure Status: Acute Assessment and plan: See plan of care listed below. Current Visit: Yes Qualifiers: Renal failure chronicity: unspecified chronicity Qualified Code(s): N19 - Unspecified kidney failure (8) Anemia Status: Acute Assessment and plan: See plan of care listed below. 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 Miranda is a 66 y/o BF who was admitted with anasarca, volume overload, shortness of breath, and chest pain at rest. She and her family are very poor historians. She does have a history of hypertension, diabetes, IVAN, morbid obesity, and bedridden. She is noted to have an IVCD/LBBB with unknown chronicity, preserved EF, with WMA suspicious for ICM. Chest x-ray on admission shows cardiomegaly and venous congestion. 2016: Ms. Miranda is negative 1.4L in her I&O's.She reports she feels as if her edema has improved. We will need to obtain an accurate weight on Ms. Miranda. Weight yesterday states 336# and weight today states 193#. Her echocardiogram revealed mild LVH, EF 50%, grade 3 diastolic dysfunction, mild biatrial enlargement, mild MR, severe pulmonary hypertension with moderate TR. D -Dimer 2.0 yesterday. She will likely need further evaluation to rule out PE/ DVT. We'll obtain venous dopplers. Due to her habitus, it is likely VQ lung scan will be inconclusive. Will further discuss with Dr. Heaton and await additional recommendations. IMPRESSION/PLAN: 1. CONGESTIVE HEART FAILURE: Acute, diastolic, with grade 3 diastolic dysfunction and left ventricular ejection fraction 50%. She needs further cardiac evaluation. Once her volume overload improves, she may be a candidate for pharmacologic stress test and RHC. If her renal function improves, she may be able to undergo LHC instead of stress testing. We will need to obtain an accurate weight on her. Continue aspirin, beta cody, low dose statin. Continue Lasix. 2. HYPERTENSION: Currently well controlled on current therapy. Will continue to monitor and adjust accordingly. 3. TYPE 2 DIABETES MELLITUS: She has been started on accuchecks with sliding scale insulin. 4. OBSTRUCTIVE SLEEP APNEA: Continue CPAP while sleeping. 5. OBESITY: Chronic. Encouraged lifestyle modifications with diet. Patient is currently bedridden. 6. BEDRIDDEN: Patient's family member states she has not walked in months. She reports that she was in the ICU in [place] several months ago and has not walked since. 7. LAURA VS. CKD: No prior records to determine whether her renal insufficency is acute or chronic. Creatinine 3.7 on admission, now 3.2. Renal ultrasound revealed no evidence of hydronephrosis. Nephrology is following. 8. ANEMIA: Iron level borderline low. TIBC normal. H&H 6.9 & 23.8. Occult stool was negative. Will defer further workup and evaluation to hospital medicine. Exam (Progress Note) - Constitutional Vitals: Period Temp Pulse Resp BP Sys/Elkins Pulse Ox Last 24 Hr 97.5 F-98.4 F 56-66 16-20 100-134/47-89 94-100 Exam: General appearance: Appears well. Pleasant and cooperative. Morbid obesity, no acute distress. Head exam: Present: normal inspection, normocephalic, atraumatic. Absent: hematoma, laceration Eye exam: Present: EOMI. Absent: conjunctival injection, nystagmus, periorbital swelling, scleral icterus, laceration to eyelids, jaundice Pupils: Present: PERRL. Absent: constricted, dilated, fixed, irregular, unequal ENT exam: Present: normal exam, normal external ear exam, mucous membranes moist. Neck exam: Present: normal inspection, midline trachea. Absent: masses, lymphadenopathy, tenderness, thyromegaly, carotid bruit Respiratory exam: Present: diminished bilaterally, otherwise clear to auscultation bilaterally. Absent: accessory muscle use, chest wall tenderness, rales, rhonchi, wheezing. Cardiovascular exam: Present: regular rate and rhythm, systolic murmur. Absent : gallop, JVD, rubs GI/Abdominal exam: Present: normal bowel sounds, soft. Absent: distended, firm , hernia, mass, tenderness. Extremities exam: Present: No Clubbing, No Cyanosis, Upper Extr. Pulses 2+, Lower Extr. Pulses 2+, 2-3+ BLE edema. Capillary refill less than 3 seconds. Musculoskeletal: Present: No Fluid Collection, No Pain, Normal Range of Motion Back exam: Present: normal inspection. Absent: muscle spasm, vertebral tenderness Neurological exam: Present: awake, alert, oriented X3, Moves all extremities well without hemiparesis or paralysis. Grossly intact without resting or essential tremor Psychiatric exam: Present: normal affect, normal mood Skin exam: Present: normal color, warm, dry, intact. Absent: cyanosis, diaphoretic, rash, urticaria Result/EKG - Labs CBC & BMP: 04/28/17 04:19 04/28/17 04:19 Lab Results: I have reviewed the past 24 hour labs Labs: Laboratory Results - last 24 hr 04/27/17 04/28/17 04/28/17 20:06 04:19 04:19 WBC 2.8 L D RBC 2.89 L Hgb 6.9 L Hct 23.8 L MCV 82.4 L MCH 24 L MCHC 29.0 L RDW 17.6 H Plt Count 178 MPV 12.0 Neut % (Auto) 78.9 H Lymph % (Auto) 16.8 L Churchill % (Auto) 3.6 Eos % (Auto) 0.0 Baso % (Auto) 0.0 Neut # (Auto) 2.2 Lymph # (Auto) 0.5 L Churchill # (Auto) 0.1 L Eos # (Auto) 0.0 Baso # (Auto) 0.0 Immature Gran % 0.7 Nucleated RBC % 0.0 Immature Gran # 0.02 Nucleated RBCs # 0.00 Immature Plt Fraction 0.0 Sodium 134 L Potassium 4.3 Chloride 95 L Carbon Dioxide 32 Anion Gap 11.3 BUN 45 H Creatinine 3.20 H GFR Calculation 19 BUN/Creatinine Ratio 14.00 Glucose 134 H POC Glucose 203 H Calculated Osmolality 281.2 Calcium 8.3 L Total Bilirubin 0.60 AST 12 ALT 16 Alkaline Phosphatase 46 Total Protein 6.5 Albumin 2.4 L Globulin 4.1 H Albumin/Globulin Ratio 0.5 L 04/28/17 04/28/17 04/28/17 08:06 12:00 15:27 WBC RBC Hgb Hct MCV MCH MCHC RDW Plt Count MPV Neut % (Auto) Lymph % (Auto) Churchill % (Auto) Eos % (Auto) Baso % (Auto) Neut # (Auto) Lymph # (Auto) Churchill # (Auto) Eos # (Auto) Baso # (Auto) Immature Gran % Nucleated RBC % Immature Gran # Nucleated RBCs # Immature Plt Fraction Sodium Potassium Chloride Carbon Dioxide Anion Gap BUN Creatinine GFR Calculation BUN/Creatinine Ratio Glucose POC Glucose 155 H 174 H 183 H Calculated Osmolality Calcium Total Bilirubin AST ALT Alkaline Phosphatase Total Protein Albumin Globulin Albumin/Globulin Ratio - EKG EKG results: interpreted by me, sinus rhythm <Jordi Heaton - Last Filed: 04/28/17 18:59> Exam (Progress Note) - Constitutional Vitals: Period Temp Pulse Resp BP Sys/Elkins Pulse Ox Last 24 Hr 97.5 F-98.4 F 56-66 16-20 100-134/47-89 94-100 Result/EKG - Labs CBC & BMP: 04/28/17 04:19 04/28/17 04:19 Labs: Laboratory Results - last 24 hr 04/27/17 04/28/17 04/28/17 20:06 04:19 04:19 WBC 2.8 L D RBC 2.89 L Hgb 6.9 L Hct 23.8 L MCV 82.4 L MCH 24 L MCHC 29.0 L RDW 17.6 H Plt Count 178 MPV 12.0 Neut % (Auto) 78.9 H Lymph % (Auto) 16.8 L Churchill % (Auto) 3.6 Eos % (Auto) 0.0 Baso % (Auto) 0.0 Neut # (Auto) 2.2 Lymph # (Auto) 0.5 L Churchill # (Auto) 0.1 L Eos # (Auto) 0.0 Baso # (Auto) 0.0 Immature Gran % 0.7 Nucleated RBC % 0.0 Immature Gran # 0.02 Nucleated RBCs # 0.00 Immature Plt Fraction 0.0 Sodium 134 L Potassium 4.3 Chloride 95 L Carbon Dioxide 32 Anion Gap 11.3 BUN 45 H Creatinine 3.20 H GFR Calculation 19 BUN/Creatinine Ratio 14.00 Glucose 134 H POC Glucose 203 H Calculated Osmolality 281.2 Calcium 8.3 L Total Bilirubin 0.60 AST 12 ALT 16 Alkaline Phosphatase 46 Total Protein 6.5 Albumin 2.4 L Globulin 4.1 H Albumin/Globulin Ratio 0.5 L 04/28/17 04/28/17 04/28/17 08:06 12:00 15:27 WBC RBC Hgb Hct MCV MCH MCHC RDW Plt Count MPV Neut % (Auto) Lymph % (Auto) Churchill % (Auto) Eos % (Auto) Baso % (Auto) Neut # (Auto) Lymph # (Auto) Churchill # (Auto) Eos # (Auto) Baso # (Auto) Immature Gran % Nucleated RBC % Immature Gran # Nucleated RBCs # Immature Plt Fraction Sodium Potassium Chloride Carbon Dioxide Anion Gap BUN Creatinine GFR Calculation BUN/Creatinine Ratio Glucose POC Glucose 155 H 174 H 183 H Calculated Osmolality Calcium Total Bilirubin AST ALT Alkaline Phosphatase Total Protein Albumin Globulin Albumin/Globulin Ratio
--- NOTE | 2017-04-28 19:37 | Ultrasound Report ---
Bilateral lower extremity venous Doppler with sanders scale, Spectral Doppler and color-flow analysis performed and interpreted. Indication: Shortness of breath. Edema Scanning over both common femoral veins, superficial femoral veins, greater saphenous veins and popliteal veins demonstrates normal compressibility, color flow, and augmentation. Impression: No evidence of DVT seen in either lower extremity. The Ultrasound images were captured and stored. PROCEDURE INTERPRETED AT [facility] DEPARTMENT OF RADIOLOGY Final Report Signed by: Dr. Joanne Isaacs
[2017-04-28] MEDS: AMITRIPTYLINE 100 MG TABLET PO SCH (21:46)
[2017-04-28] MEDS: ROSUVASTATIN 10 MG TABLET PO SCH (21:46)
[2017-04-29 06:57] LABS: Basophils % 0.2 % (0.0-0.8); Eosinophils % 0.4 % (0.00-10.9); Hematocrit 22.2 VOL% (35.7-47.0); Immature Granulocytes % 0.2 %; Immature Granulocytes Absolute 0.01 #; Lymphocytes # 1.7 10*3/uL (1.4-4.0); Lymphocytes % 32.4 % (21.3-54.2); Mean Corpuscular HGB Conc 28.8 GM/DL (32-36); Mean Corpuscular Hemoglobin 24 PG (27-34); Mean Corpuscular Volume 82.5 FL (87-102); Mean Platelet Volume 11.7 FL (9.6-12.0); Monocytes # 0.6 10*3/uL (0.11-0.8); Monocytes % 11.2 % (1.7-12.7); Neutrophils % 55.6 % (38.7-73.9); Platelet Count 163 T/CUMM (130-400); Red Blood Count 2.69 MC/CUMM (3.8-5.5); Red Cell Distribution Width 18.1 % (9.3-17.3); White Blood Count 5.4 T/CUMM (4-12)
[2017-04-29 07:30] LABS: Calcium 8.3 MG/DL (8.5-10.1); Osmolality,Calculated 281.1 MOS/KG (273-304)
[2017-04-29] MEDS: LEVOFLOXACIN INJ 250 MG in PREMIX 1 EACH IV SCH (07:33)
[2017-04-29 07:40] LABS: Hemoglobin 6.4 GM/DL (12.0-16.0)
[2017-04-29 07:41] LABS: Hypochromasia 1+; Platelet Estimate Normal
[2017-04-29 07:42] LABS: Giant Platelets Few; Ovalocytes Slight
[2017-04-29] MEDS: INSULIN LISPRO 100 UNIT/ML SUBCUT SCH ×4 (08:26→21:20)
[2017-04-29] MEDS: FUROSEMIDE 40 MG/4 ML VIAL IV SCH ×3 (08:27→21:14)
[2017-04-29] MEDS: INSULIN ASPART PROTAMINE/ASPART 70/30 100 UNIT/ML SUBCUT SCH ×2 (08:27→18:43)
[2017-04-29] MEDS: PIOGLITAZONE 45 MG TABLET PO SCH (08:28)
[2017-04-29] MEDS: CARVEDILOL 12.5 MG TABLET PO SCH ×2 (08:28→21:20)
[2017-04-29] MEDS: ASPIRIN EC 81 MG TABLET PO SCH (08:28)
[2017-04-29] MEDS: LACTOBACILLUS ACIDOPHILUS/BULGARICUS CAPLET PO SCH ×2 (08:28→21:20)
[2017-04-29] MEDS: POTASSIUM CHLORIDE 10 MEQ TABLET PO SCH ×2 (08:28→21:20)
[2017-04-29] MEDS: LORATADINE 10 MG TABLET PO SCH (08:28)
--- NOTE | 2017-04-29 08:29 | Hospitalist Progress Note ---
Assessment and Plan (1) Chest pain Status: Acute Assessment and plan: She is not presently experienced chest pain. She is being followed by cardiology who does not recommend any further evaluation. Current Visit: Yes (2) Morbid obesity Status: Chronic Current Visit: Yes (3) Congestive heart failure Status: Acute Assessment and plan: She experiencing acute on chronic diastolic congestive heart failure. Echocardiogram demonstrated LV EF 50%. She has significant right heart failure was probably secondary to cor pulmonale. Current Visit: Yes Qualifiers: Congestive heart failure type: combined Congestive heart failure chronicity : acute on chronic Qualified Code(s): I50.43 - Acute on chronic combined systolic (congestive) and diastolic (congestive) heart failure (4) Debility, unspecified Status: Acute Current Visit: Yes (5) Renal failure Status: Acute Assessment and plan: Her BUN and creatinine are 53 and 3.1 respectively with a calculated GFR of 19. It is unclear if this is chronic renal failure, acute renal failure, or acute on chronic renal failure. Current Visit: Yes Qualifiers: Renal failure chronicity: unspecified chronicity Qualified Code(s): N19 - Unspecified kidney failure (6) UTI (urinary tract infection) Status: Acute Assessment and plan: She is being treated with intravenous levofloxacin 250 mg daily. Cultures are pending. Current Visit: Yes Qualifiers: Urinary tract infection type: site unspecified Hematuria presence: without hematuria Qualified Code(s): N39.0 - Urinary tract infection, site not specified (7) Hypertension Status: Chronic Assessment and plan: Her blood pressure today is 1114/59. She is presently being treated with carvedilol. Current Visit: Yes (8) Diabetes Status: Acute Assessment and plan: She has a previous history of insulin-dependent diabetes mellitus. Her blood glucose this morning is 166. She is being treated with continuation of her previous medications and sliding scale insulin coverage. Current Visit: Yes Qualifiers: Diabetes mellitus type: type 1 Diabetes mellitus complication detail: with chronic kidney disease Hospitalist: Subjective Interval history: The patient has no new complaints. She passed an uneventful night. She underwent a venous duplex Doppler examination yesterday demonstrated no evidence of DVT. She continued treatment with CPAP and intravenous furosemide. Exam - Constitutional Vitals: Period Temp Pulse Resp BP Sys/Elkins Pulse Ox Last 24 Hr 97.4 F-98.2 F 58-67 18-20 100-119/47-66 97-100 General appearance: no acute distress, morbidly obese - Head Head exam: Present: normal inspection - Neck Neck exam: Present: normal inspection - Respiratory Respiratory exam: Present: decreased breath sounds - Cardiovascular Cardiovascular exam: Present: regular rate and rhythm - GI/Abdominal GI/Abdominal exam: Present: normal bowel sounds, soft, other (Nontender with no palpable masses or hepatosplenomegaly.) - Extremities Exam Extremities exam: Present: edema (Severe bilateral lower extremities.) Results - Labs CBC & BMP: 04/29/17 06:40 04/29/17 06:40
[2017-04-29] MEDS: ENOXAPARIN 30 MG/0.3 ML SYRINGE SUBCUT SCH (08:33)
[2017-04-29] MEDS: IRON SUCROSE 200 MG in SODIUM CHLORIDE 0.9% 100 ML IV SCH ×2 (11:41→16:38)
--- NOTE | 2017-04-29 11:49 | Nuclear Medicine Report ---
History short of breath and elevated d-dimer Limited 3 plane ventilation/perfusion imaging obtained on the stretcher 40 mCi technetium 99m DTPA and 5 mCi technetium 99m MAA utilized Findings: There is an elongated the defect overlying the mid to lower right chest on ventilation images which is much less pronounced on the perfusion images possibly related to overlying soft tissues. There is otherwise a ingenious activity bilaterally in both ventilation and perfusion images No moderate or large mismatched perfusion defects identified Impression: Low probability of pulmonary embolus PROCEDURE INTERPRETED AT [facility] DEPARTMENT OF RADIOLOGY Final Report Signed by: Dr. Sana Isaacs
--- NOTE | 2017-04-29 11:58 | XRay Report ---
History short of breath and elevated d-dimer Comparison 04/27/2017 The heart and vessels are enlarged. There remains mild diffuse bilateral interstitial prominence without consolidation. Impression: Continued mild interstitial edema PROCEDURE INTERPRETED AT [facility] DEPARTMENT OF RADIOLOGY Final Report Signed by: Dr. Sana Isaacs
--- NOTE | 2017-04-29 14:25 | Nephrology Progress Note ---
Nephrology - PN: Subj Interval history: Ms. Miranda is seen in follow-up of her renal impairment. Creatinine is down to 3.1. She continues to receive diuretics and is edematous. She tells me that she was in the hospital in [place] 1 year ago and has been in bed ever since. She blames it on the lack of "rehab" after that hospital stay but it seems that she is content with her bedbound state. She is receiving IV iron to replete her iron stores. She had a 13% iron saturation and her anemia is well out of proportion to the level of her renal dysfunction. We will continue to follow her for now and we are encouraged by her slow yet minimal improved renal function. Certainly I would think we are near her baseline renal function Exam (PN)-Nephrology - Vital Signs Vital signs: Period Temp Pulse Resp BP Sys/Elkins Pulse Ox Last 24 Hr 97.4 F-98.2 F 56-67 14-20 114-152/47-69 95-100 - Lab 04/29/17 06:40 04/29/17 06:40 Most recent lab results ABG pH 7.306 (7.35-7.45) L 04/27/17 14:08 ABG pCO2 67.1 MM HG (35-48) H 04/27/17 14:08 ABG pO2 118.2 MM HG (80-95) H 04/27/17 14:08 ABG HCO3 32.7 MMOL/L (20-26) H 04/27/17 14:08 ABG O2 Saturation 99.6 % (95-100) 04/27/17 14:08 Calcium 8.3 MG/DL (8.5-10.1) L 04/29/17 06:40 Magnesium 2.3 MG/DL (1.8-2.4) 04/27/17 02:41
--- NOTE | 2017-04-29 14:37 | Cardiology Progress Note ---
Assessment and Plan - Time spent with patient Time spent with patient: Greater than 30 minutes (Chart review exam discussion with the patient and documentation) (1) Anemia Status: Acute Current Visit: Yes (2) COPD (chronic obstructive pulmonary disease) Status: Acute Current Visit: Yes (3) Debility, unspecified Status: Acute Current Visit: Yes (4) Diabetes Status: Acute Current Visit: Yes Qualifiers: Diabetes mellitus type: type 1 Diabetes mellitus complication detail: with chronic kidney disease (5) Renal failure Status: Acute Current Visit: Yes Qualifiers: Renal failure chronicity: unspecified chronicity Qualified Code(s): N19 - Unspecified kidney failure (6) Hypertension Status: Chronic Current Visit: Yes (7) Morbid obesity Status: Chronic Current Visit: Yes (8) Obstructive sleep apnea Status: Chronic Current Visit: Yes Cardiology - PN: Subj Interval history: Ms. Miranda is without new complaints today. This is the first time I seen her she has been seen by my partners in the hospital she was transferred from downstairs up to 5 E. She was initially seen by Dr. Howell seen yesterday by Dr. Heaton she has anasarca and evidence of pulmonary continue right heart failure she is morbidly obese and does not ambulate she has a hemoglobin of 6.4. Her ejection fraction is 50% and some question of regional wall motion abnormality and she is completely free of angina. She has not ambulated now in some time. She told me several months she told Dr. Beth apparently been over a year. I do not think at this time there is any further invasive cardiac workup warranted given her chronic renal insufficiency I think the yield would be low particularly given the fact that she is nonambulatory free of any anginal symptoms. Her echocardiogram has less than ideal subendocardial resolution which may limit adequate assessment of regional wall motion abnormality. The patient should continue on medical therapy and maximize those things that could be maximized such as caloric restriction and weight loss would be nice to see her ambulatory again but I do not think this is probable. Her renal function appears to be at or near its baseline. I have nothing further to add on this hospitalization from a cardiac standpoint would recommend adjustments of her medications for ideal blood pressure control and risk factor modification. Exam (Progress Note) - Constitutional Vitals: Period Temp Pulse Resp BP Sys/Elkins Pulse Ox Last 24 Hr 97.4 F-98.2 F 56-67 14-20 114-152/47-69 95-100 General appearance: morbidly obese - Eye Eye exam: Present: EOMI Pupils: Present: MONSERRAT - ENT ENT exam: Present: other (ASA for airway) - Respiratory Respiratory exam: Present: clear to auscultation bilaterally - Cardiovascular Cardiovascular exam: Present: regular rate and rhythm (Tones are very distant) - GI/Abdominal GI/Abdominal exam: Present: normal bowel sounds - Neurological Exam Neurological exam: Present: alert, oriented X3 - Psychiatric Psychiatric exam: Present: depressed, flat affect Result/EKG - Labs CBC & BMP: 04/29/17 06:40 04/29/17 06:40 Labs: Laboratory Results - last 24 hr 04/28/17 04/28/17 04/29/17 15:27 19:34 06:40 WBC 5.4 D RBC 2.69 L Hgb 6.4 L* Hct 22.2 L MCV 82.5 L MCH 24 L MCHC 28.8 L RDW 18.1 H Plt Count 163 MPV 11.7 Neut % (Auto) 55.6 Lymph % (Auto) 32.4 Aiken % (Auto) 11.2 Eos % (Auto) 0.4 Baso % (Auto) 0.2 Neut # (Auto) 3.0 Lymph # (Auto) 1.7 Aiken # (Auto) 0.6 Eos # (Auto) 0.0 Baso # (Auto) 0.0 Immature Gran % 0.2 Nucleated RBC % 0.0 Immature Gran # 0.01 Nucleated RBCs # 0.00 Platelet Estimate Normal Giant Platelets Few Immature Plt Fraction 0.0 Hypochromasia 1+ Ovalocytes Slight Sodium Potassium Chloride Carbon Dioxide Anion Gap BUN Creatinine GFR Calculation BUN/Creatinine Ratio Glucose POC Glucose 183 H 215 H Calculated Osmolality Calcium 04/29/17 04/29/17 04/29/17 06:40 08:04 12:40 WBC RBC Hgb Hct MCV MCH MCHC RDW Plt Count MPV Neut % (Auto) Lymph % (Auto) Aiken % (Auto) Eos % (Auto) Baso % (Auto) Neut # (Auto) Lymph # (Auto) Aiken # (Auto) Eos # (Auto) Baso # (Auto) Immature Gran % Nucleated RBC % Immature Gran # Nucleated RBCs # Platelet Estimate Giant Platelets Immature Plt Fraction Hypochromasia Ovalocytes Sodium 135 L Potassium 4.0 Chloride 95 L Carbon Dioxide 35 H Anion Gap 9.0 BUN 53 H Creatinine 3.10 H GFR Calculation 19 BUN/Creatinine Ratio 17.00 Glucose 69 L POC Glucose 166 H 131 H Calculated Osmolality 281.1 Calcium 8.3 L
[2017-04-29] MEDS: MORPHINE 2 MG/1 ML SYRINGE IV PRN ×2 (16:39→21:23)
[2017-04-29] MEDS: AMITRIPTYLINE 100 MG TABLET PO SCH (21:20)
[2017-04-29] MEDS: ROSUVASTATIN 10 MG TABLET PO SCH (21:20)
[2017-04-30] MEDS: LEVOFLOXACIN INJ 250 MG in PREMIX 1 EACH IV SCH (07:12)
--- NOTE | 2017-04-30 08:23 | Discharge Summary ---
Hospital Course - Hospital Course Hospital Course: Ms. Miranda is a 66 year old female with a past medical history significant for HTN, IDDM, CHF, and morbid obesity who presents to the ED today with complaints of chest pain and shortness of breath x 4-5 days. Chest pain is located on the left side and is described as intermittent and a feeling of heaviness. She has associated epigastric discomfort with nausea and early satiety. She further complains of bilateral leg edema and pain. ED work up was significant for hemoglobin 2.86, hematocrit 24.2, Na 132, Creatinine 3.7, Troponin 0.049 and BNP 314. Her UA showed a nitrite positive UTI. Currently, she reports that her breathing is better and she does not have chest pain at pain. Her only discomfort at this time is her legs. The patient was admitted to the hospital with diagnosis of urinary tract infection, acute on chronic renal failure, and acute on chronic congestive heart failure. She was treated for her urinary tract infection with intravenous levofloxacin. She was treated for congestive heart failure with intravenous furosemide. She was seen in consultation and followed during her hospitalization by cardiology and nephrology. She remained essentially bed bound during her hospitalization which she states is her status normally at home. She was offered the alternative of placement in a fci which she declined.At the time of her discharge her BUN and creatinine were 53 and 3.1 respectively and her hematocrit 22.2 and hemoglobin 6.4 respectively. Diagnosis - Discharge Diagnosis (1) Chest pain Status: Acute (2) Morbid obesity Status: Chronic (3) Congestive heart failure Status: Acute (4) Debility, unspecified Status: Acute (5) Renal failure Status: Acute (6) UTI (urinary tract infection) Status: Acute (7) Hypertension Status: Chronic (8) Diabetes Status: Acute Discharge Plan - Discharge Data Disposition: Home Health Service Condition at Discharge: Stable Discharge Diet: advance to your usual diet Activity: resume usual activities as tolerated - Discharge Medications New Insulin Aspart Prot/Asp 70/30 [NovoLOG Mix 70/30] 30 unit SUBCUT QPM #5 syringe Rosuvastatin [Crestor] 10 mg PO BEDTIME #30 tablet Continue Potassium Chloride 10 meq PO BID Carvedilol 12.5 mg PO BID W/MEALS Amitriptyline HCl 100 mg PO BEDTIME Saccharomyces Boulardii [Probiotic] 250 mg PO BID Digoxin 125 mcg PO DAILY acetaZOLAMIDE [Acetazolamide] 250 mg PO BID Furosemide 80 mg PO TID Insulin Aspart Prot/Asp 70/30 [NovoLOG Mix 70/30] 30 unit SUBCUT QPM Insulin Aspart Prot/Asp 70/30 [NovoLOG Mix 70/30] 40 unit SUBCUT QAM #5 syringe Loratadine Tab [Claritin Tab] 10 mg PO DAILY Lubiprostone [Amitiza] 24 - 48 mcg PO DAILY Pioglitazone HCl 45 mg PO DAILY Hydrocodone/Acetaminophen [Sebastian 10-325 Tablet] 1 each PO Q4H PRN PRN Reason: Pain - Follow Up or Referral - Forms/Instructions Exam - Constitutional Vitals: Period Temp Pulse Resp BP Sys/Elkins Pulse Ox Last 24 Hr 97.4 F-98.2 F 63-71 14-20 118-152/52-69 94-99 Discharge Results Procedures and tests throughout hospitalization: Pending Orders 05/01/17 04:00 Basic Metabolic Panel IN AM 05/02/17 04:00 Basic Metabolic Panel IN AM 05/03/17 04:00 Basic Metabolic Panel IN AM Labs on day of discharge: Labs from last 24 hours 04/30/17 04/29/17 04/29/17 07:16 20:32 15:30 POC Glucose 59 L 101 103 04/29/17 12:40 POC Glucose 131 H DS: Provider Date of admission: 04/27/17 05:41 Primary care physician: . No PCP Attending physician on admission: Arlin Bliss MD Consults: 04/27/17 06:45 Consult to Physician [CONS] Routine Comment: Chest pain, CHF Consulting Provider: Shaka Howell 04/27/17 06:50 Consult to Physician [CONS] Routine Comment: Renal failure Consulting Provider: Hua Beth Person Notified: Dr. Beth Date Notified: 04/27/17 Time Notified: 08:23 04/27/17 08:14 Consult to Pastoral Services [CONS] Routine Comment: Pastoral Screen: Request Data Processing Auditor Visit Pastoral Screen Source of Request: Patient Other Source Requesting: Patient 04/30/17 01:27 Consult to Case Mgmt/Social Srvs [CONS] Routine Reason for Case Mgmt/Social Srvs: Home Health Discharging clinician: Rubén Mims
[2017-04-30] MEDS: PIOGLITAZONE 45 MG TABLET PO SCH (08:59)
[2017-04-30] MEDS: CARVEDILOL 12.5 MG TABLET PO SCH (08:59)
[2017-04-30] MEDS: INSULIN LISPRO 100 UNIT/ML SUBCUT SCH ×2 (08:59→13:23)
[2017-04-30] MEDS: ENOXAPARIN 30 MG/0.3 ML SYRINGE SUBCUT SCH (08:59)
[2017-04-30] MEDS: LACTOBACILLUS ACIDOPHILUS/BULGARICUS CAPLET PO SCH (08:59)
[2017-04-30] MEDS: ASPIRIN EC 81 MG TABLET PO SCH (08:59)
[2017-04-30] MEDS: LORATADINE 10 MG TABLET PO SCH (08:59)
[2017-04-30] MEDS: FUROSEMIDE 40 MG/4 ML VIAL IV SCH ×2 (08:59→15:03)
[2017-04-30] MEDS: IRON SUCROSE 200 MG in SODIUM CHLORIDE 0.9% 100 ML IV SCH (09:00)
[2017-04-30] MEDS: INSULIN ASPART PROTAMINE/ASPART 70/30 100 UNIT/ML SUBCUT SCH (09:00)
[2017-04-30] MEDS: POTASSIUM CHLORIDE 10 MEQ TABLET PO SCH (09:12)
[2017-04-30 11:48] VITALS: BP 123/61
== END 2017-04-30 17:28 | disposition home health service (06) | DRG 291 ==
LOC: N.ED 02:05 → N.EDINP 05:40 → SUATTDRO 05:40 → N.EDINP 07:37 → N.TELEN 07:39 → N.5E 04-28 23:35
PROVIDERS: ADMIT Family Medicine

== ENCOUNTER 2017-05-30 11:20 | Inpatient (IN) ==
[2017-05-30 12:09] LABS: Basophils % 0.4 % (0.0-0.8); Eosinophils # 0.2 10*3/uL (0.0-0.87); Eosinophils % 3.7 % (0.00-10.9); Hematocrit 25.2 VOL% (35.7-47.0); Hemoglobin 7.1 GM/DL (12.0-16.0); Immature Granulocytes % 0.4 %; Immature Granulocytes Absolute 0.02 #; Lymphocytes # 1.7 10*3/uL (1.4-4.0); Mean Corpuscular HGB Conc 28.2 GM/DL (32-36); Mean Corpuscular Hemoglobin 24 PG (27-34); Mean Platelet Volume 11.5 FL (9.6-12.0); Monocytes # 0.5 10*3/uL (0.11-0.8); Monocytes % 9.2 % (1.7-12.7); Neutrophils % 55.3 % (38.7-73.9); Platelet Count 298 T/CUMM (130-400); Red Blood Count 2.93 MC/CUMM (3.8-5.5); Red Cell Distribution Width 18.7 % (9.3-17.3); White Blood Count 5.4 T/CUMM (4-12)
[2017-05-30 12:20] LABS: PT Patient Result 10.7 SECS
[2017-05-30 12:40] LABS: Folate 10.3 NG/ML (5.4-24.0)
[2017-05-30 12:41] LABS: % Iron Saturation 8.8 % (18-50); Alanine Aminotransferase 20 U/L (13-56); Albumin 2.5 G/DL (3.4-5.0); Alkaline Phosphatase 74 U/L (45-117); Aspartate Amino Transferase 12 U/L (0-37); Bilirubin,Total < 0.39 MG/DL (0.2-1.0); Blood Urea Nitrogen 13 MG/DL (7-18); Glucose 125 MG/DL (74-106); Iron 28 UG/DL (50-170); Iron Binding Capacity 319 UG/DL (250-450); Osmolality,Calculated 283.1 MOS/KG (273-304); Potassium 3.8 MMOL/L (3.5-5.1); Sodium 142 MMOL/L (136-145); Total Protein 7.8 G/DL (6.4-8.3)
[2017-05-30] MEDS ORDERED: ACETAMINOPHEN 325 MG TABLET PO PRN ×2 (14:06)
[2017-05-30] MEDS ORDERED: diphenhydrAMINE CAP 25 MG CAPSULE PO PRN (14:06)
[2017-05-30] MEDS ORDERED: ONDANSETRON 4 MG/2 ML VIAL IV PRN (14:06)
[2017-05-30] MEDS ORDERED: guaiFENesin/DM ER 600-30 MG TABLET PO PRN (14:06)
[2017-05-30] MEDS ORDERED: PROMETHAZINE 25 MG/1 ML VIAL IM PRN (14:06)
[2017-05-30] MEDS ORDERED: MORPHINE 2 MG/1 ML SYRINGE IV PRN (14:06)
[2017-05-30] MEDS ORDERED: SODIUM CHLORIDE 0.9% 250 ML IV PRN (14:13)
[2017-05-30] MEDS ORDERED: DEXTROSE 50% 25 GM/50 ML VIAL IV PRN (14:14)
[2017-05-30] MEDS ORDERED: FUROSEMIDE 40 MG/4 ML VIAL IV ONE (14:14)
[2017-05-30] MEDS ORDERED: GLUCAGON 1 MG VIAL IM PRN (14:14)
[2017-05-30] MEDS: PIOGLITAZONE 45 MG TABLET PO SCH (15:56)
[2017-05-30] MEDS: acetaZOLAMIDE 250 MG TABLET PO SCH ×2 (15:57→21:13)
[2017-05-30] MEDS: LUBIPROSTONE 24 MCG CAPSULE PO SCH (15:57)
[2017-05-30] MEDS: LORATADINE 10 MG TABLET PO SCH (15:57)
[2017-05-30] MEDS: PANTOPRAZOLE 40 MG TABLET PO SCH (15:58)
[2017-05-30] MEDS: NON-FORMULARY MEDICATION (Saccharomyces Boulardii [Probiotic] 250 MG) PO SCH ×2 (15:58→21:13)
[2017-05-30] MEDS: DIGOXIN 0.125 MG TABLET PO SCH (15:58)
[2017-05-30] MEDS: ENOXAPARIN 40 MG/0.4 ML SYRINGE SUBCUT SCH (16:00)
[2017-05-30] MEDS: CARVEDILOL 12.5 MG TABLET PO SCH (16:16)
[2017-05-30] MEDS: FUROSEMIDE 80 MG TABLET PO SCH ×2 (16:16→21:12)
[2017-05-30] MEDS: POTASSIUM CHLORIDE 10 MEQ TABLET PO SCH ×2 (16:16→21:12)
[2017-05-30] MEDS: INSULIN LISPRO 100 UNIT/ML SUBCUT SCH (18:32)
[2017-05-30] MEDS: AMITRIPTYLINE 100 MG TABLET PO SCH (21:12)
[2017-05-30] MEDS: ROSUVASTATIN 10 MG TABLET PO SCH (21:13)
[2017-05-31 02:41] LABS: Basophils % 0.4 % (0.0-0.8); Eosinophils # 0.2 10*3/uL (0.0-0.87); Eosinophils % 3.9 % (0.00-10.9); Hematocrit 29.3 VOL% (35.7-47.0); Hemoglobin 8.5 GM/DL (12.0-16.0); INR 1.1; Immature Granulocytes % 0.4 %; Immature Granulocytes Absolute 0.02 #; Lymphocytes # 2.1 10*3/uL (1.4-4.0); Lymphocytes % 38.5 % (21.3-54.2); Mean Corpuscular Hemoglobin 25 PG (27-34); Mean Corpuscular Volume 87.5 FL (87-102); Monocytes # 0.8 10*3/uL (0.11-0.8); Monocytes % 14.6 % (1.7-12.7); Neutrophils # 2.3 10*3/uL (1.4-7.4); Neutrophils % 42.2 % (38.7-73.9); PT Patient Result 11.1 SECS; Platelet Count 320 T/CUMM (130-400); Red Blood Count 3.35 MC/CUMM (3.8-5.5); Red Cell Distribution Width 17.9 % (9.3-17.3); White Blood Count 5.3 T/CUMM (4-12)
[2017-05-31 03:49] LABS: Hypochromasia 1+; Platelet Estimate Normal; Target Cells Few
[2017-05-31] MEDS: INSULIN LISPRO 100 UNIT/ML SUBCUT SCH ×2 (07:20→16:43)
[2017-05-31] MEDS: FUROSEMIDE 80 MG TABLET PO SCH ×3 (08:57→20:48)
[2017-05-31] MEDS: PIOGLITAZONE 45 MG TABLET PO SCH (08:57)
[2017-05-31] MEDS: PANTOPRAZOLE 40 MG TABLET PO SCH (08:58)
[2017-05-31] MEDS: DOCUSATE SODIUM 100 MG CAPSULE PO PRN (08:58)
[2017-05-31] MEDS: DIGOXIN 0.125 MG TABLET PO SCH (08:58)
[2017-05-31] MEDS: acetaZOLAMIDE 250 MG TABLET PO SCH ×2 (08:58→20:48)
[2017-05-31] MEDS: LORATADINE 10 MG TABLET PO SCH (08:58)
[2017-05-31] MEDS: CARVEDILOL 12.5 MG TABLET PO SCH ×2 (08:58→16:43)
[2017-05-31] MEDS: POTASSIUM CHLORIDE 10 MEQ TABLET PO SCH ×2 (08:58→20:48)
[2017-05-31] MEDS: LUBIPROSTONE 24 MCG CAPSULE PO SCH (08:59)
[2017-05-31] MEDS: NON-FORMULARY MEDICATION (Saccharomyces Boulardii [Probiotic] 250 MG) PO SCH ×2 (12:22→22:24)
[2017-05-31] MEDS: ENOXAPARIN 40 MG/0.4 ML SYRINGE SUBCUT SCH (15:50)
[2017-05-31] MEDS: POLYETHYLENE GLYCOL POWDER 17 GM PACK PO SCH ×2 (15:56→20:49)
[2017-05-31] MEDS: AMITRIPTYLINE 100 MG TABLET PO SCH (20:48)
[2017-05-31] MEDS: ROSUVASTATIN 10 MG TABLET PO SCH (20:48)
[2017-06-01] MEDS: INSULIN LISPRO 100 UNIT/ML SUBCUT SCH ×2 (07:00→16:30)
[2017-06-01] MEDS ORDERED: LIDOCAINE 1% 5 ML VIAL ONE (07:45)
[2017-06-01] MEDS ORDERED: PROPOFOL 200 MG/20 ML VIAL IV ONE (07:45)
[2017-06-01] MEDS ORDERED: ETOMIDATE 20 MG/10 ML VIAL IV ONE (07:45)
[2017-06-01] MEDS: DOCUSATE SODIUM 100 MG CAPSULE PO PRN (09:57)
[2017-06-01] MEDS: LUBIPROSTONE 24 MCG CAPSULE PO SCH (09:57)
[2017-06-01] MEDS: DIGOXIN 0.125 MG TABLET PO SCH (09:57)
[2017-06-01] MEDS: acetaZOLAMIDE 250 MG TABLET PO SCH ×2 (09:57→21:03)
[2017-06-01] MEDS: POTASSIUM CHLORIDE 10 MEQ TABLET PO SCH ×2 (09:57→21:03)
[2017-06-01] MEDS: BISACODYL 5 MG TABLET PO SCH ×3 (09:58→23:40)
[2017-06-01] MEDS: FUROSEMIDE 80 MG TABLET PO SCH ×3 (09:58→21:03)
[2017-06-01] MEDS: CARVEDILOL 12.5 MG TABLET PO SCH ×2 (09:58→16:04)
[2017-06-01] MEDS: PIOGLITAZONE 45 MG TABLET PO SCH (09:58)
[2017-06-01] MEDS: PANTOPRAZOLE 40 MG TABLET PO SCH (09:59)
[2017-06-01] MEDS: POLYETHYLENE GLYCOL POWDER 17 GM PACK PO SCH ×3 (09:59→21:03)
[2017-06-01] MEDS: LORATADINE 10 MG TABLET PO SCH (09:59)
[2017-06-01] MEDS: NON-FORMULARY MEDICATION (Saccharomyces Boulardii [Probiotic] 250 MG) PO SCH ×2 (10:08→21:05)
[2017-06-01 10:48] LABS: Basophils % 0.2 % (0.0-0.8); Eosinophils # 0.2 10*3/uL (0.0-0.87); Eosinophils % 4.2 % (0.00-10.9); Hematocrit 30.6 VOL% (35.7-47.0); Immature Granulocytes % 0.4 %; Immature Granulocytes Absolute 0.02 #; Lymphocytes # 1.2 10*3/uL (1.4-4.0); Lymphocytes % 24.3 % (21.3-54.2); Mean Corpuscular HGB Conc 28.4 GM/DL (32-36); Mean Corpuscular Hemoglobin 25 PG (27-34); Mean Corpuscular Volume 87.7 FL (87-102); Mean Platelet Volume 10.7 FL (9.6-12.0); Monocytes # 0.6 10*3/uL (0.11-0.8); Monocytes % 12.1 % (1.7-12.7); Neutrophils # 2.8 10*3/uL (1.4-7.4); Neutrophils % 58.8 % (38.7-73.9); Platelet Count 376 T/CUMM (130-400); Red Blood Count 3.49 MC/CUMM (3.8-5.5); Red Cell Distribution Width 18.2 % (9.3-17.3); White Blood Count 4.8 T/CUMM (4-12)
[2017-06-01 10:49] LABS: Hematocrit 30.9 VOL% (35.7-47.0)
[2017-06-01 10:51] LABS: Hemoglobin 8.7 GM/DL (12.0-16.0); Hemoglobin 8.8 GM/DL (12.0-16.0)
[2017-06-01] MEDS ORDERED: ALBUTEROL 2.5 MG/3 ML NEB RESP TX PRN (16:22)
[2017-06-01] MEDS ORDERED: POLYETHYLENE GLYCOL POWDER 255 GM BOTTLE PO ONE (18:00)
[2017-06-01] MEDS: AMITRIPTYLINE 100 MG TABLET PO SCH (21:03)
[2017-06-01] MEDS: ROSUVASTATIN 10 MG TABLET PO SCH (21:03)
[2017-06-01 21:09] LABS: Hemoglobin 8.7 GM/DL (12.0-16.0)
[2017-06-02 06:12] LABS: Hematocrit 30.9 VOL% (35.7-47.0); Hemoglobin 8.6 GM/DL (12.0-16.0)
[2017-06-02 06:15] LABS: Basophils % 0.2 % (0.0-0.8); Eosinophils # 0.2 10*3/uL (0.0-0.87); Eosinophils % 3.7 % (0.00-10.9); Hematocrit 30.8 VOL% (35.7-47.0); Hemoglobin 8.6 GM/DL (12.0-16.0); Immature Granulocytes % 0.2 %; Immature Granulocytes Absolute 0.01 #; Lymphocytes # 1.2 10*3/uL (1.4-4.0); Lymphocytes % 24.1 % (21.3-54.2); Mean Corpuscular HGB Conc 27.9 GM/DL (32-36); Mean Corpuscular Hemoglobin 25 PG (27-34); Mean Corpuscular Volume 88.8 FL (87-102); Mean Platelet Volume 10.6 FL (9.6-12.0); Monocytes # 0.9 10*3/uL (0.11-0.8); Monocytes % 17.4 % (1.7-12.7); Neutrophils # 2.7 10*3/uL (1.4-7.4); Neutrophils % 54.4 % (38.7-73.9); Platelet Count 372 T/CUMM (130-400); Red Blood Count 3.47 MC/CUMM (3.8-5.5); Red Cell Distribution Width 18.3 % (9.3-17.3); White Blood Count 4.9 T/CUMM (4-12)
[2017-06-02 06:47] LABS: Eosinophils 5 % (0-10); Giant Platelets Few; Hypochromasia 1+; Lymphocytes 28 % (20-55); Ovalocytes Slight; Platelet Estimate Adequate; Segmented Neutrophils 52 % (50-85); Total Cells Counted 100
[2017-06-02 08:01] LABS: Alanine Aminotransferase 21 U/L (13-56); Albumin 2.5 G/DL (3.4-5.0); Alkaline Phosphatase 71 U/L (45-117); Aspartate Amino Transferase 10 U/L (0-37); Bilirubin,Total < 0.39 MG/DL (0.2-1.0); Blood Urea Nitrogen 11 MG/DL (7-18); Calcium 8.7 MG/DL (8.5-10.1); Glucose 144 MG/DL (74-106); Osmolality,Calculated 284.1 MOS/KG (273-304); Potassium 3.8 MMOL/L (3.5-5.1); Sodium 142 MMOL/L (136-145); Total Protein 7.2 G/DL (6.4-8.3)
[2017-06-02] MEDS: INSULIN LISPRO 100 UNIT/ML SUBCUT SCH ×2 (08:05→18:24)
[2017-06-02] MEDS: CARVEDILOL 12.5 MG TABLET PO SCH ×2 (08:30→18:24)
[2017-06-02] MEDS: POTASSIUM CHLORIDE 10 MEQ TABLET PO SCH ×2 (08:31→22:21)
[2017-06-02] MEDS: FUROSEMIDE 80 MG TABLET PO SCH ×3 (08:31→22:21)
[2017-06-02] MEDS: acetaZOLAMIDE 250 MG TABLET PO SCH ×2 (08:31→22:21)
[2017-06-02] MEDS: POLYETHYLENE GLYCOL POWDER 17 GM PACK PO SCH ×3 (08:32→22:21)
[2017-06-02] MEDS: NON-FORMULARY MEDICATION (Saccharomyces Boulardii [Probiotic] 250 MG) PO SCH (08:33)
[2017-06-02] MEDS ORDERED: LIDOCAINE 1% 5 ML VIAL ONE (13:05)
[2017-06-02] MEDS ORDERED: PHENYLEPHRINE 1 MG/10 ML SYRINGE IV ONE (13:05)
[2017-06-02] MEDS ORDERED: PROPOFOL 200 MG/20 ML VIAL IV ONE (13:05)
[2017-06-02] MEDS: LUBIPROSTONE 24 MCG CAPSULE PO SCH (18:23)
[2017-06-02] MEDS: PIOGLITAZONE 45 MG TABLET PO SCH (18:23)
[2017-06-02] MEDS: PANTOPRAZOLE 40 MG TABLET PO SCH (18:23)
[2017-06-02] MEDS: LORATADINE 10 MG TABLET PO SCH (18:24)
[2017-06-02] MEDS: DIGOXIN 0.125 MG TABLET PO SCH (18:24)
[2017-06-02] MEDS: ROSUVASTATIN 10 MG TABLET PO SCH (22:21)
[2017-06-02] MEDS: AMITRIPTYLINE 100 MG TABLET PO SCH (22:21)
[2017-06-03] MEDS: NON-FORMULARY MEDICATION (Saccharomyces Boulardii [Probiotic] 250 MG) PO SCH ×3 (01:24→20:16)
[2017-06-03 07:40] LABS: Basophils % 0.2 % (0.0-0.8); Eosinophils # 0.2 10*3/uL (0.0-0.87); Eosinophils % 3.4 % (0.00-10.9); Hematocrit 32.7 VOL% (35.7-47.0); Hemoglobin 9.1 GM/DL (12.0-16.0); Immature Granulocytes % 0.4 %; Immature Granulocytes Absolute 0.02 #; Lymphocytes # 1.4 10*3/uL (1.4-4.0); Lymphocytes % 27.9 % (21.3-54.2); Mean Corpuscular HGB Conc 27.8 GM/DL (32-36); Mean Corpuscular Hemoglobin 25 PG (27-34); Mean Corpuscular Volume 88.9 FL (87-102); Mean Platelet Volume 12.1 FL (9.6-12.0); Monocytes # 0.8 10*3/uL (0.11-0.8); Monocytes % 15.7 % (1.7-12.7); Neutrophils # 2.6 10*3/uL (1.4-7.4); Neutrophils % 52.4 % (38.7-73.9); Platelet Count 243 T/CUMM (130-400); Red Blood Count 3.68 MC/CUMM (3.8-5.5); Red Cell Distribution Width 18.6 % (9.3-17.3)
[2017-06-03 08:11] LABS: Giant Platelets Few; Hypochromasia 1+; Lymphocytes 21 % (20-55); Ovalocytes Slight; Platelet Estimate Adequate; Segmented Neutrophils 65 % (50-85); Total Cells Counted 100
[2017-06-03] MEDS: LUBIPROSTONE 24 MCG CAPSULE PO SCH (09:26)
[2017-06-03] MEDS: POTASSIUM CHLORIDE 10 MEQ TABLET PO SCH ×2 (09:26→20:08)
[2017-06-03] MEDS: INSULIN LISPRO 100 UNIT/ML SUBCUT SCH ×2 (09:26→16:59)
[2017-06-03] MEDS: acetaZOLAMIDE 250 MG TABLET PO SCH ×2 (09:26→20:08)
[2017-06-03] MEDS: CARVEDILOL 12.5 MG TABLET PO SCH ×2 (09:26→17:00)
[2017-06-03] MEDS: LORATADINE 10 MG TABLET PO SCH (09:26)
[2017-06-03] MEDS: PIOGLITAZONE 45 MG TABLET PO SCH (09:26)
[2017-06-03] MEDS: DIGOXIN 0.125 MG TABLET PO SCH (09:27)
[2017-06-03] MEDS: FUROSEMIDE 80 MG TABLET PO SCH ×3 (09:33→20:08)
[2017-06-03] MEDS: PANTOPRAZOLE 40 MG TABLET PO SCH (09:33)
[2017-06-03] MEDS: POLYETHYLENE GLYCOL POWDER 17 GM PACK PO SCH ×3 (09:33→20:08)
[2017-06-03] MEDS: amLODIPine 10 MG TABLET PO SCH (12:15)
[2017-06-03] MEDS: ACETYLCYSTEINE 600 MG CAPSULE PO SCH ×2 (12:15→20:08)
[2017-06-03] MEDS: ROSUVASTATIN 10 MG TABLET PO SCH (20:07)
[2017-06-03] MEDS: AMITRIPTYLINE 100 MG TABLET PO SCH (20:08)
[2017-06-04 04:57] LABS: Basophils % 0.2 % (0.0-0.8); Eosinophils # 0.2 10*3/uL (0.0-0.87); Eosinophils % 3.3 % (0.00-10.9); Hematocrit 29.4 VOL% (35.7-47.0); Hemoglobin 8.5 GM/DL (12.0-16.0); Immature Granulocytes % 0.3 %; Immature Granulocytes Absolute 0.02 #; Lymphocytes # 1.6 10*3/uL (1.4-4.0); Lymphocytes % 27.1 % (21.3-54.2); Mean Corpuscular HGB Conc 28.9 GM/DL (32-36); Mean Corpuscular Hemoglobin 25 PG (27-34); Mean Corpuscular Volume 87.2 FL (87-102); Mean Platelet Volume 10.5 FL (9.6-12.0); Monocytes # 0.9 10*3/uL (0.11-0.8); NRBC # 0.02 10*3/uL; Neutrophils # 3.1 10*3/uL (1.4-7.4); Neutrophils % 54.1 % (38.7-73.9); Platelet Count 359 T/CUMM (130-400); Red Blood Count 3.37 MC/CUMM (3.8-5.5); Red Cell Distribution Width 18.5 % (9.3-17.3); White Blood Count 5.7 T/CUMM (4-12)
[2017-06-04 05:50] LABS: Giant Platelets Few; Hypochromasia 1+; Ovalocytes Slight; Platelet Estimate Adequate
[2017-06-04] MEDS: INSULIN LISPRO 100 UNIT/ML SUBCUT SCH (07:30)
[2017-06-04] MEDS: ACETYLCYSTEINE 600 MG CAPSULE PO SCH (09:25)
[2017-06-04] MEDS: LUBIPROSTONE 24 MCG CAPSULE PO SCH (09:26)
[2017-06-04] MEDS: CARVEDILOL 12.5 MG TABLET PO SCH (09:26)
[2017-06-04] MEDS: POTASSIUM CHLORIDE 10 MEQ TABLET PO SCH (09:26)
[2017-06-04] MEDS: PANTOPRAZOLE 40 MG TABLET PO SCH (09:26)
[2017-06-04] MEDS: DIGOXIN 0.125 MG TABLET PO SCH (09:26)
[2017-06-04] MEDS: acetaZOLAMIDE 250 MG TABLET PO SCH (09:26)
[2017-06-04] MEDS: DOCUSATE SODIUM 100 MG CAPSULE PO PRN (09:26)
[2017-06-04] MEDS: LORATADINE 10 MG TABLET PO SCH (09:26)
[2017-06-04] MEDS: FUROSEMIDE 80 MG TABLET PO SCH (09:27)
[2017-06-04] MEDS: POLYETHYLENE GLYCOL POWDER 17 GM PACK PO SCH (09:29)
[2017-06-04] MEDS: NON-FORMULARY MEDICATION (Saccharomyces Boulardii [Probiotic] 250 MG) PO SCH (09:38)
[2017-06-04 11:02] VITALS: BP 141/65
[2017-06-04] MEDS: amLODIPine 10 MG TABLET PO SCH (13:22)
== END 2017-06-04 14:10 | DRG 380 ==
LOC: EDUNIT# → EDBD → N.ED 11:20 → N.EDINP 13:30 → SUATTDRO 13:30 → N.4E 15:06
PROVIDERS: ADMIT Hospitalist; ATTEND Hospitalist